=== PATIENT | female | born 2000 | race Caucasian/White ===

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

== ENCOUNTER → 2020-05-29 11:06 | Outpatient (CLI) | payer MEDICAID, SELFPAY ==
[2020-05-29 11:27] LABS: Absolute Lymphocyte Count 1.91 X10^3/uL (0.83-4.51); Absolute Neutrophil Count 1.8 X10^3/uL (2.0-7.7); Basophil# 0.01 X10^3/uL; Basophil% 0.2 % (0-1); Eosinophil# 0.05 X10^3/uL; Eosinophils% 1.2 % (0-5); Hematocrit 38.3 % (37-47); Hemoglobin 12.7 g/dL (12.0-15.0); Lymphocyte # 1.91 X10^3/ul (4.0); Lymphocyte % 46.5 % (19-41); Mean Corp Hgb Conc 33.2 g/dL (32-36); Mean Corpuscular Hgb 29.8 pg (27.0-32.0); Mean Corpuscular Volume 89.9 fL (81-99); Mean Platelet Vol. 9.3 fl (6.2-12.0); Monocyte# 0.36 X10^3/uL; Monocyte% 8.8 % (0-10); NRBC Flagged by Analyzer 0 % (0-5); Neutrophil # 1.77 X10^3/uL (2.7-7.7); Neutrophil % 43.1 % (47-70); Platelet Count 267 K/mm3 (150-450); RBC Distribution Width CV 12.1 % (11.6-14.6); RBC Distribution Width SD 39.8 fl (35.1-43.9); Red Blood Count 4.26 M/mm3 (4.2-5.4); White Blood Count 4.1 K/mm3 (4.4-11.0)
[2020-05-29 11:48] LABS: Thyroid Stim Hormone (TSH) 1.71 uIU/mL (0.358-3.74)
[2020-06-01 16:36] LABS: HPV Reflexed? NOT INDICATED
== END ==
PROVIDERS: PCP Internal Medicine; Referring Provider Obstetrics & Gynecology; Visit Provider Obstetrics & Gynecology
DX: R53.83 Other fatigue (principal); Z12.4 Encounter for screening for malignant neoplasm of cervix
CPT/HCPCS: 36415; 82306; 84443; 85025; 88175; G0145

== ENCOUNTER → 2020-06-08 07:55 | Outpatient (CLI) | payer MEDICAID, SELFPAY ==
--- NOTE | 2020-06-08 08:00 | US_ITS ---
STUDY: ULTRASOUND BREAST - LEFT REASON FOR EXAM: Female, 20 years old. Palpable lump left breast. TECHNIQUE: Axial and longitudinal images of the LEFT breast were performed with a high resolution ultrasound transducer. # OF IMAGES: 28 COMPARISON: None. FINDINGS: LEFT Breast: The upper lateral aspect of the left breast was examined by ultrasound. There is homogeneous fibroglandular tissue. No sonographic abnormality is seen. US/Breast Limited Unilateral IMPRESSION: No sonographic abnormality is seen. ASSESSMENT CATEGORY: BIRADS Category 1: Negative. A letter regarding these results will be sent to the patient by the facility within 30 days. Electronically Signed: Ambrose Samuels MD at 10:40 EST , Service support ,
== END ==
PROVIDERS: PCP Internal Medicine; Referring Provider Obstetrics & Gynecology; Visit Provider Obstetrics & Gynecology
DX: N63.20 Unspecified lump in the left breast, unspecified quadrant (principal)
CPT/HCPCS: 76642

== ENCOUNTER → 2024-07-07 | Outpatient (CLI) | payer MEDICAID, SELFPAY ==
[2024-07-07 17:36] LABS: Absolute Lymphocyte Count 1.97 X10^3/uL (0.83-4.51); Absolute Neutrophil Count 4.4 X10^3/uL (2.0-7.7); Basophil# 0.02 X10^3/uL; Basophil% 0.3 % (0-1); Eosinophil# 0.05 X10^3/uL; Eosinophils% 0.7 % (0-5); Hematocrit 37.7 % (37-47); Hemoglobin 12.6 g/dL (12.0-15.0); Lymphocyte # 1.97 X10^3/ul (0.83-4.51); Lymphocyte % 28.3 % (19-41); Mean Corp Hgb Conc 33.4 g/dL (32-36); Mean Corpuscular Hgb 29.4 pg (27.0-32.0); Mean Corpuscular Volume 87.9 fL (81-99); Mean Platelet Vol. 10.3 fl (6.2-12.0); Monocyte# 0.47 X10^3/uL; Monocyte% 6.7 % (0-10); NRBC Flagged by Analyzer 0 % (0-5); Neutrophil # 4.43 X10^3/uL (2.7-7.7); Neutrophil % 63.6 % (47-70); Platelet Count 268 K/mm3 (150-450); RBC Distribution Width CV 13.2 % (11.6-14.6); RBC Distribution Width SD 42.4 fl (35.1-43.9); Red Blood Count 4.29 M/mm3 (4.2-5.4)
[2024-07-07 18:04] LABS: ALB/GLOB Ratio 1.9 RATIO (0.9-2.4); AST(SGOT) 28 U/L (<=31); Alanine Aminotransfer ALT/SGPT 23 U/L (<=34); Albumin, Serum 4.9 g/dL (3.5-5.0); Alkaline Phosphatase 39 U/L (35-104); Anion Gap 13 (5-15); BUN 10 mg/dL (4-19); BUN/Creat Ratio 14.9 RATIO (10-20); Calcium,Total 9.7 mg/dL (7.6-11.0); Carbon Dioxide 25.2 mmol/L (21.0-32.0); Chloride 102 mmol/L (98-108); Creatinine, Serum 0.69 mg/dL (0.70-1.20); EST Glomerular Filtration Rate 124 (>60); Globulin 2.5 g/dL (2.2-4.2); Glucose 88 mg/dL (70-99); Potassium 3.9 mmol/L (3.3-5.1); Protein, Total 7.4 g/dL (5.9-8.4); Sodium Level 140 mmol/L (133-145); Total Bilirubin 0.25 mg/dL (0.00-1.30)
[2024-07-07 18:12] LABS: Vitamin D,25 Hydroxy 23.5 ng/mL (30-100)
[2024-07-12 14:06] LABS: HPV Reflexed? NOT INDICATED
== END | disposition home or self-care (01) ==
PROVIDERS: PCP Internal Medicine; Referring Provider Nurse Practitioner Family; Visit Provider Nurse Practitioner Family
DX: Z12.4 Encounter for screening for malignant neoplasm of cervix (principal); Z13.29 Encounter for screening for other suspected endocrine disorder; N92.6 Irregular menstruation, unspecified
CPT/HCPCS: 36415; 80053; 82306; 84439; 84443; 85025; 88175; G0145

== ENCOUNTER → 2024-12-10 | Outpatient (CLI) | payer MEDICAID, SELFPAY ==
--- NOTE | 2024-12-10 08:46 | US_ITS ---
PROCEDURE: PELVIC W/ TRANSVAGINAL REASON FOR EXAM: AUB TECHNIQUE: Procedure Code: [id number] Modality: US Procedure: PELVIC W/ TRANSVAGINAL COMPARISON: None FINDINGS: LMP: November 05, 2024. Measurements: Uterus: 8.2 cm x 5.7 cm x 4.2 cm with a volume of 101.62 mL Endometrial Thickness: 8.3 mm Right Ovary: 3.8 cm x 1.4 cm x 1.7 cm with a volume of 3.88 mL. Left Ovary: 3.9 cm x 4.1 cm x 2.1 cm with a volume of 17.12 mL. TRANSABDOMINAL: Uterus: There is a 6.8 cm x 7.1 cm x 5.6 cm fibroid. Endometrium: Unremarkable. Right ovary: Normal size and echotexture. Left ovary: Normal size and echotexture. Other: No large pelvic mass identified. Transvaginal sonography was performed to better visualize the endometrium. TRANSVAGINAL: Uterus: Anteverted. 6.8 cm x 7.1 cm 5.6 cm uterine fibroid. Endometrium: Normal echotexture. Right ovary: Normal size and echotexture. Left ovary: Normal size and echotexture. Other adnexal findings: None. Cul-de-sac: No free intraperitoneal fluid identified. Tenderness: No tenderness US/Pelvic w/ Transvaginal IMPRESSION: 6.8 cm 7.1 cm 5.6 cm fundal fibroid. Reading Location: [id number]
--- OUTSIDE RECORDS SUMMARY | 2024-12-10 08:47 | XMS RPT_ITS | CCD ---
Author Organization [facility] Care Team Providers Care Senior Analytic Consultant Name Role Phone Gregory MCINTOSH, Dr. Oswald Primary Care Provider Gregory MCINTOSH, Dr. Oswald Referring Provider Bebo JAINCRasheeda Attending Provider Bebo JAINCRasheeda Referring Provider Rasheeda Lagunas Attending Unavailable Olesammye, Efewdanilobe Referring Unavailable Olesammye, Efewongbe Primary Care Unavailable Rasheeda Lagunas Attending Unavailable Oleghe, Efewongbe Primary Care Unavailable Rasheeda Lagunas Referring Unavailable Rasheeda Lagunas Referring Unavailable Rasheeda Lagunas Attending Unavailable Oleghe, Efewongbe Primary Care Unavailable Medications Current Medications Medication Drug Class(es) Dates Sig (Normalized) Sig (Original) Multivitamin,Tx-Iron -Minerals (Complete Multivitamin) tablet (1 source) Start: 05-04-2019 Multivitamin,Tx-Iro n-Minerals (Complete Multivitamin) tablet Active 1 {tbl} PO DAILY May 04, 2019 1:00am Completed/Discontinued Medications Medication Drug Class(es) Dates Sig (Normalized) Sig (Original) calcium carbonate 1250 mg oral tablet (1 source) Start: 12-15-2018 End: 02-16-2019 take 1 tablet by mouth once daily Calcium Carbonate 500 mg calcium (1,250 mg) tablet Discontinued 500 mg PO DAILY December 15, 2018 12:00am February 16, 2019 7:17pm escitalopram 10 mg oral tablet (1 source) Serotonin Reuptake Inhibitor Start: 05-29-2020 End: 08-30-2021 take 1 tablet by mouth once daily Escitalopram Oxalate (Lexapro) 10 mg tablet Discontinued 10 mg PO DAILY May 29, 2020 1:00am August 30, 2021 2:41pm naproxen 500 mg oral tablet (1 source) Nonsteroidal Anti-inflammatory Drug Start: 05-29-2020 End: 08-30-2021 Naproxen 500 mg tablet Discontinued 500 mg PO 2 to 3 times per day as needed for pain 60 May 29, 2020 1:00am August 30, 2021 2:41pm administer with food or milk Problems Active Problems Problem Classification Problem Date Documented Date Episodic/Chronic Anxiety disorders (1 source) Anxiety; Translations: [Anxiety disorder, unspecified] 08-30-2021 Chronic Comment on above: lexapro Malaise and fatigue (1 source) Fatigue; Translations: [Other fatigue] 08-30-2021 Episodic Comment on above: cbc tsh vit d discus sed lifestyle interventions Menstrual disorders (4 sources) Irregular periods; Translations: [Irregular menstruation, unspecified] Onset: 07-07-2024 07-07-2024 Chronic Comment on above: ocp fu in 3-4 months Nonmalignant breast conditions (1 source) Breast lump; Translations: [Unspecified lump in the left breast, overlapping quadrants] 08-30-2021 Episodic Comment on above: us ordered Other female genital disorders (1 source) Abnormal uterine and vaginal bleeding, unspecified; Translations: [Abnormal uterine and vaginal bleeding, unspecified] Onset: 12-02-2024 Chronic Past or Other Problems Problem Classification Problem Date Documented Da te Episodic/Chronic Other screening for suspected conditions (not mental disorders or infectious disease) (1 source) Encounter for screening for malignant neoplasm of cervix; Translations: [Encounter for screening for malignant neoplasm of cervix] Onset: 07-12-2024 Episodic Results Test Name Value Interpretation Reference Range Facility PAP I-G w/rfx hrHPV-Aptimaon 07-12-2024 ADEQ Comment Normal . [facility] Comment on above: Order Comment: Speci men Comment: [id number] Specimen Comment: Source.............Cervix;Endocervix Specimen Comment: No. of containers..01 ThinPrep Vial Result Comment: Sati sfactory for evaluation. No endocervical component is identified. Performed By: #### L 7400.0353 #### [facility] [address] [place], [place], [address] COMM . Normal . [facility] Comment on above: Order Comment: Speci men Comment: [id number] Specimen Comment: Source.............Cervix;Endocervix Specimen Comment: No. of containers..01 ThinPrep Vial Performed By: #### L 7400.0353 #### [facility] [address] [place], [address] COMMENT Comment Normal . [facility] Comment on above: Order Comment: Speci men Comment: [id number] Specimen Comment: Source.............Cervix;Endocervix Specimen Comment: No. of containers..01 ThinPrep Vial Result Comment: This liquid based ThinPrep(R) pap test was screened with the use of an image guided system. Performed By: #### L 7400.0353 #### [facility] [address] [place], [place], [id number] DIAG Comment Normal . [facility] Comment on above: Order Comment: Speci men Comment: [id number] Specimen Comment: Source.............Cervix;Endocervix Specimen Comment: No. of containers..01 ThinPrep Vial Result Comment: NEGA TIVE FOR INTRAEPITHELIAL LESION OR MALIGNANCY. Performed By: #### L 7400.0353 #### [facility] [address] [place], [place], [id number] HPV RFLX Comment Normal . [facility] Comment on above: Order Comment: Speci men Comment: [id number] Specimen Comment: Source.............Cervix;Endocervix Specimen Comment: No. of containers..01 ThinPrep Vial Result Comment: The HPV DNA reflex criteria were not met with this specimen result therefore, no HPV testing was performed. Performed at: [facility] [id number] Mri Tech: Sage Booth MD, Phone: [phone] Performed at: [address] [id number] Mri Tech: Brooklynn Bautista MD, Phone: [phone] Performed By: #### L 7400.0353 #### [facility] [address] [place], [place], [id number] PAPSMR Comment Normal . [facility] Comment on above: Order Comment: Speci men Comment: [id number] Specimen Comment: Source.............Cervix;Endocervix Specimen Comment: No. of containers..01 ThinPrep Vial Result Comment: The Pap smear is a screening test designed to aid in the detection of premalignant and malignant conditions of the uterine cervix. It is not a diagnostic procedure and should not be used as the sole means of detecting cervical cancer. Both false-positive and false-negative reports do occur. Performed By: #### L 7400.0353 #### [facility] [address] [place], [place], [address] PERFORM Comment Normal . [facility] Comment on above: Order Comment: Speci men Comment: [id number] Specimen Comment: Source.............Cervix;Endocervix Specimen Comment: No. of containers..01 ThinPrep Vial Result Comment: Monica Segal, Rate Clerk Passenger (ASCP) Performed By: #### L 7400.0353 #### [facility] [address] [place], [place], [id number] Absolute neutrophil countOrd ered By: Rasheeda Lagunas on 07-07-2024 Neutrophils (Bld) [#/Vol] 4.4 10*3/uL 2.0-7.7 [facility] Anion gap in Serum or Plasma Ordered By: Rasheeda Lagunas on 07-07-2024 Anion gap [Moles/Vol] 13 mmol/L 5-15 [facility] BUN/creatinine ratioOrdered By: Rasheeda Lagunas on 07-07-2024 Urea nitrogen/Creatinine [Mass ratio] 14.9 mg/mg 10-20 [facility] Basophil percentageOrdered B y: Rasheeda Lagunas on 07-07-2024 Basophils/100 WBC (Bld) 0.3 % 0-1 [facility] Bilirubin, totalOrdered By: Rasheeda Lagunas on 07-07-2024 Bilirubin [Mass/Vol] 0.25 mg/dL 0.00-1.30 [facility] CBC W/Diff, Automatedon Absolute Lymph 1.97 X10 3/uL Normal 0.83-4.51 [facility] Comment on above: Performed By: #### L 500.4050, L100.0100, L506.0400, L501.9520, L506.1001 #### [facility] [address] [place], [address] Absolute Neut 4.4 X10 3/uL Normal 2.0-7.7 [facility] Comment on above: Performed By: #### L 500.4050, L100.0100, L506.0400, L501.9520, L506.1001 #### [facility] [address] [place], [address] Basophils/100 WBC (Bld) 0.3 % Normal 0-1 [facility] Comment on above: Performed By: #### L 500.4050, L100.0100, L506.0400, L501.9520, L506.1001 #### [facility] [address] [place], [address] Eosinophils/100 WBC (Bld) 0.7 % Normal 0-5 [facility] Comment on above: Performed By: #### L 500.4050, L100.0100, L506.0400, L501.9520, L506.1001 #### [facility] [address] [place], [address] Erythrocyte distribution width (RBC) [Ratio] 13.2 % Normal 11.6-14.6 [facility] Comment on above: Performed By: #### L 500.4050, L100.0100, L506.0400, L501.9520, L506.1001 #### [facility] [address] [place], [address] Hematocrit (Bld) [Volume fraction] 37.7 % Normal 37-47 [facility] Comment on above: Performed By: #### L 500.4050, L100.0100, L506.0400, L501.9520, L506.1001 #### [facility] [address] [place], [address] Hemoglobin (Bld) [Mass/Vol] 12.6 g/dL Normal 12.0-15.0 [facility] Comment on above: Performed By: #### L 500.4050, L100.0100, L506.0400, L501.9520, L506.1001 #### [facility] [address] [place], [address] IG% 0.400 Normal 0.0-0.9 [facility] Comment on above: Result Comment: IG% - Immature Granulocytes (promyelocytes, myelocytes and metamyelocytes) > 1% indicates that a LEFT SHIFT is Present. Performed By: #### L 500.4050, L100.0100, L506.0400, L501.9520, L506.1001 #### [facility] [address] [place], [address] Lymphocytes/100 WBC (Bld) 28.3 % Normal 19-41 [facility] Comment on above: Performed By: #### L 500.4050, L100.0100, L506.0400, L501.9520, L506.1001 #### [facility] [address] [place], [address] MCH (RBC) [Entitic mass] 29.4 pg Normal 27.0-32.0 [facility] Comment on above: Performed By: #### L 500.4050, L100.0100, L506.0400, L501.9520, L506.1001 #### [facility] [address] [place], [address] MCHC (RBC) [Mass/Vol] 33.4 g/dL Normal 32-36 [facility] Comment on above: Performed By: #### L 500.4050, L100.0100, L506.0400, L501.9520, L506.1001 #### [facility] [address] [place], [address] MCV (RBC) [Entitic vol] 87.9 fL Normal 81-99 [facility] Comment on above: Performed By: #### L 500.4050, L100.0100, L506.0400, L501.9520, L506.1001 #### [facility] [address] [place], [address] Monocytes/100 WBC (Bld) 6.7 % Normal 0-10 [facility] Comment on above: Performed By: #### L 500.4050, L100.0100, L506.0400, L501.9520, L506.1001 #### [facility] [address] [place], [address] Neutrophils/100 WBC (Bld) 63.6 % Normal 47-70 [facility] Comment on above: Performed By: #### L 500.4050, L100.0100, L506.0400, L501.9520, L506.1001 #### [facility] [address] [place], [address] Nucleated RBC (Bld) [#/Vol] 0 10*3/uL Normal 0-5 [facility] Comment on above: Performed By: #### L 500.4050, L100.0100, L506.0400, L501.9520, L506.1001 #### [facility] [address] [place], [address] Platelet mean volume (Bld) [Entitic vol] 10.3 fL Normal 6.2-12.0 [facility] Comment on above: Performed By: #### L 500.4050, L100.0100, L506.0400, L501.9520, L506.1001 #### [facility] [address] [place], [address] Platelets (Bld) [#/Vol] 268 10*3/uL Normal 150-450 [facility] Comment on above: Performed By: #### L 500.4050, L100.0100, L506.0400, L501.9520, L506.1001 #### [facility] [address] [place], [address] RBC (Bld) [#/Vol] 4.29 10*6/uL Normal 4.2-5.[address] [facility] Comment on above: Performed By: #### L 500.4050, L100.0100, L506.0400, L501.9520, L506.1001 #### [facility] [address] [place], [address] RDW SD 42.4 fl Normal 35.1-43.9 [facility] Comment on above: Performed By: #### L 500.4050, L100.0100, L506.0400, L501.9520, L506.1001 #### [facility] [address] [place], [address] WBC (Bld) [#/Vol] 7.0 10*3/uL Normal 4.4-11.0 [facility] Comment on above: Performed By: #### L 500.4050, L100.0100, L506.0400, L501.9520, L506.1001 #### [facility] [address] [place], [address] Carbon dioxide, total [Moles /volume] in Central venous bloodOrdered By: Rasheeda Lagunas on 07-07-2024 CO2 [Moles/Vol] 25.2 mmol/L 21.0-32.0 [facility] Chloride assayOrdered By: Kelly Lagunas on 07-07-2024 Chloride [Moles/Vol] 102 mmol/L 98-108 [facility] Comprehensive Metabolic Prof ilon 07-07-2024 Albumin [Mass/Vol] 4.9 g/dL Normal 3.5-5.0 [facility] Comment on above: Performed By: #### L 500.4050, L100.0100, L506.0400, L501.9520, L506.1001 #### [facility] [address] [place], [address] Albumin/Globulin [Mass ratio] 1.9 {ratio} Normal 0.9-2.4 [facility] Comment on above: Performed By: #### L 500.4050, L100.0100, L506.0400, L501.9520, L506.1001 #### [facility] [address] [place], [address] ALK PHOS 39 U/L Normal 35-104 [facility] Comment on above: Performed By: #### L 500.4050, L100.0100, L506.0400, L501.9520, L506.1001 #### [facility] [address] [place], [address] ALT [Catalytic activity/Vol] 23 U/L Normal <=34 [facility] Comment on above: Performed By: #### L 500.4050, L100.0100, L506.0400, L501.9520, L506.1001 #### [facility] [address] [place], [address] AST [Catalytic activity/Vol] 28 U/L Normal <=31 [facility] Comment on above: Performed By: #### L 500.4050, L100.0100, L506.0400, L501.9520, L506.1001 #### [facility] [address] [place], [address] Bilirubin [Mass/Vol] 0.25 mg/dL Normal 0.00-1.30 [facility] Comment on above: Performed By: #### L 500.4050, L100.0100, L506.0400, L501.9520, L506.1001 #### [facility] [address] [place], [address] BUN/CRE 14.9 RATIO Normal 10-20 [facility] Comment on above: Performed By: #### L 500.4050, L100.0100, L506.0400, L501.9520, L506.1001 #### [facility] [address] [place], [address] Calcium [Mass/Vol] 9.7 mg/dL Normal 7.6-11.0 [facility] Comment on above: Performed By: #### L 500.4050, L100.0100, L506.0400, L501.9520, L506.1001 #### [facility] [address] [place], [address] Chloride [Moles/Vol] 102 mmol/L Normal 98-108 [facility] Comment on above: Performed By: #### L 500.4050, L100.0100, L506.0400, L501.9520, L506.1001 #### [facility] [address] [place], [address] CO2 [Moles/Vol] 25.2 mmol/L Normal 21.0-32.0 [facility] Comment on above: Performed By: #### L 500.4050, L100.0100, L506.0400, L501.9520, L506.1001 #### [facility] [address] [place], [address] Creatinine [Mass/Vol] 0.69 mg/dL Low 0.70-1.20 [facility] Comment on above: Performed By: #### L 500.4050, L100.0100, L506.0400, L501.9520, L506.1001 #### [facility] [address] [place], [address] GAP 13 Normal 5-15 [facility] Comment on above: Performed By: #### L 500.4050, L100.0100, L506.0400, L501.9520, L506.1001 #### [facility] [address] [place], [address] GFR/1.73 sq M.predicted among non-blacks MDRD (S/P/Bld) [Vol rate/Area] 124 mL/min/{1.73_m2} Normal >60 [facility] Comment on above: Result Comment: mL/m in/1.73m2 CKD-EPI Creatinine Equation (2020) Performed By: #### L 500.4050, L100.0100, L506.0400, L501.9520, L506.1001 #### [facility] [address] [place], [address] Globulin (S) [Mass/Vol] 2.5 g/dL Normal 2.2-4.2 [facility] Comment on above: Performed By: #### L 500.4050, L100.0100, L506.0400, L501.9520, L506.1001 #### [facility] [address] [place], [address] Glucose [Mass/Vol] 88 mg/dL Normal 70-99 [facility] Comment on above: Performed By: #### L 500.4050, L100.0100, L506.0400, L501.9520, L506.1001 #### [facility] [address] [place], [address] Potassium [Moles/Vol] 3.9 mmol/L Normal 3.3-5.1 [facility] Comment on above: Performed By: #### L 500.4050, L100.0100, L506.0400, L501.9520, L506.1001 #### [facility] [address] [place], [address] Sodium [Moles/Vol] 140 mmol/L Normal 133-145 [facility] Comment on above: Performed By: #### L 500.4050, L100.0100, L506.0400, L501.9520, L506.1001 #### [facility] [address] [place], [address] T PROT 7.4 g/dL Normal 5.9-8.4 [facility] Comment on above: Performed By: #### L 500.4050, L100.0100, L506.0400, L501.9520, L506.1001 #### [facility] [address] [place], [address] Urea nitrogen [Mass/Vol] 10 mg/dL Normal 4-19 [facility] Comment on above: Performed By: #### L 500.4050, L100.0100, L506.0400, L501.9520, L506.1001 #### [facility] [address] [place], [address] Eosinophil percentageOrdered By: Rasheeda Lagunas on 07-07-2024 Eosinophils/100 WBC (Bld) 0.7 % 0-5 [facility] Erythrocyte distribution wid th (RBC) [Ratio]Ordered By: Rasheeda Lagunas on 07-07-2024 Erythrocyte distribution width (RBC) [Entitic vol] 42.4 fL 35.1-43.9 [facility] Erythrocyte distribution wid th ratioOrdered By: Rasheeda Lagunas on 07-07-2024 Erythrocyte distribution width (RBC) [Ratio] 13.2 % 11.6-14.6 [facility] GFR/1.73 sq M.predicted emily g non-blacks MDRD (S/P/Bld) [Vol rate/Area]Ordered By: Rasheeda Lagunas on 07-07-2024 Estimated GFR (MDRD) Non-Af Amer 124 >60 [facility] Comment on above: mL/min/1.73m2 CKD-EP I Creatinine Equation (2020) Hematocrit Auto (Bld) [Volum e fraction]Ordered By: Rasheeda Lagunas on 07-07-2024 Hematocrit (Bld) [Volume fraction] 37.7 % 37-47 [facility] Hemoglobin measurementOrdere d By: Raseheda Lagunas on 07-07-2024 Hemoglobin (Bld) [Mass/Vol] 12.6 g/dL 12.0-15.0 [facility] Immature granulocytes/100 WB C Auto (Bld)Ordered By: Rasheeda Lagunas on 07-07-2024 Immature granulocytes/100 WBC (Bld) 0.400 % 0.0-0.9 [facility] Comment on above: IG% - Immature Granu locytes (promyelocytes, myelocytes and metamyelocytes) > 1% indicates that a LEFT SHIFT is Present. Laboratory - Chemistry and C hemistry - challengeOrdered By: Rasheeda Lagunas on 07-07-2024 AST [Catalytic activity/Vol] 28 U/L <32 [facility] Lymphocytes Auto (Unsp spec) [#/Vol]Ordered By: Rasheeda Lagunas on 07-07-2024 Lymphocytes (Bld) [#/Vol] 1.97 10*3/uL 0.83-4.51 [facility] Lymphocytes/100 WBC Auto (Un sp spec)Ordered By: Rasheeda Lagunas on 07-07-2024 Lymphocytes/100 WBC (Bld) 28.3 % 19-41 [facility] MCV (mean corpuscular volume ) determinationOrdered By: Rasheeda Lagunas on 07-07-2024 MCV (RBC) [Entitic vol] 87.9 fL 81-99 [facility] Mean corpuscular hemoglobin (MCH) determinationOrdered By: Rasheeda Lagunas on 07-07-2024 MCH (RBC) [Entitic mass] 29.4 pg 27.0-32.0 [facility] Mean corpuscular hemoglobin concentration (MCHC) determinationOrdered By: Rasheeda Lagunas on 07-07-2024 MCHC (RBC) [Mass/Vol] 33.4 g/dL 32-36 [facility] Mean platelet volume determi nationOrdered By: Rasheeda Lagunas on 07-07-2024 Platelet mean volume (Bld) [Entitic vol] 10.3 fL 6.2-12.0 [facility] Monocyte percentageOrdered B y: Rasheeda Lagunas on 07-07-2024 Monocytes/100 WBC (Bld) 6.7 % 0-10 [facility] Neutrophil percentageOrdered By: Rasheeda Lagunas on 07-07-2024 Neutrophils/100 WBC (Bld) 63.6 % 47-70 [facility] Nucleated red blood cell per centageOrdered By: Rasheeda Lagunas on 07-07-2024 Nucleated RBC/100 WBC (Bld) [Ratio] 0 % 0-5 [facility] Instructional Manager Office Visit Reporton 07-07-2024 Instructional Manager Office Visit Report [facility] [address], [address] [place] [address] OFFICE VISIT Date of Service: 07/07/24 MR#: [id number] Acct: [id number] Name: MELISSA REINOSO Rep #: [id number] : 2000 Provider: YAMILET Tate Age/Sex: 24/F Location: [facility] Status: Signed Intake Vital Signs 08/30/21 14:40 07/07/24 13:37 Height 5 ft 3 in 5 ft 3 in Weight: 138 lb BMI 24.4 BP 121/79 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 Is patient in pain?: No Allergies No Known Allergies Allergy (Verified 07/07/24 13:35) Medications ???Medication ???Instructions ???Recorded ???Confirmed ???Type multivitamin,tx-iron-m inerals 1 tab PO DAILY 05/04/19 07/07/24 H istory (Complete Multivitamin tablet) Is last menstrual period known: Yes Last Menstrual Period: 06/17/24 Post menopausal: No Patient : No : No Control Method: none PFSH Medical History (Updated 07/07/24 @ 14:05 by YAMILET Gold) Heart murmur Surgical History S/P tooth extraction Family History Grandfather Colon cancer Grandmother Cancer Father Diabetes Social History (Updated 07/07/24 @ 13:51 by Rasheeda Lagunas NP-Renee) household members: spouse housing: house Smoking Status: Never smoker alcohol intake: never substance use type: does not use frequency: does not exercise seatbelt use: always additional social history: Works at [employer] History 0 Elective abortions Hx Para Spontaneous abortions Hx # Term Pregnancies Ectopic pregnancies Hx # Pregnancies Multiple births # of living children HPI Encounter for routine gynecological examination Details: MELISSA REINOSO is a 24 year old who presents for annual exam. She reports she has had painful periods; she reports she does have heavy bleeding during her menses; occasionally has bleeding in between her menses--reports this comes around ovulation. She reports she is sexually active. Wearing condoms-1 partner () Last PAP: 2020; normal. History of abnormal PAP: no. Last mammogram: age 39 History of abnormal mammogram: n/a Colon cancer screening: age 44 Other preventative health care screenings: Dr. Jenkins; PCP. Female Reproductive History Last Menstrual Period: 06/17/24 Cycle Length: 21-35 Bleeding Duration: 3 ROS Const Constitutional: Denies chills, fatigue, fever(s), headache(s) or weight loss Eyes Eyes: Denies change in vision ENT ENT: Denies dizziness Resp Resp: Denies cough GI GI: Denies abdominal pain, constipation or nausea : Denies difficulty voiding, dysuria, hematuria, nipple discharge, pelvic pain, prolapse symptoms, urinary incontinence, vaginal discharge, vaginal dryness, vaginal odor or vaginal pruritus Skin Skin/Breast: Denies alopecia, rash, breast mass, breast pain, breast skin changes or nipple discharge Neuro Neuro: Denies dizziness Psych Psych: Denies anxiety or depression Endo Endo: Denies cold intolerance, excessive sweating or heat intolerance Exam Const General: cooperative, healthy appearing, comfortable, no acute distress, well groomed and well hydrated Nutritional Appearance: well nourished Orientation: alert, awake and oriented x3 HENMT Head: normal to inspection and normocephalic Ears: hearing grossly normal bilaterally and external ears normal Nose: external nose normal Face and sinus: normal facial exam Eyes General: appearance normal, both eyes and all related structures Neck Neck: normal visual inspection, full ROM and no lymphadenopathy Thyroid: thyroid normal Chest Chest palpation inspection: normal inspection of the chest Breast inspection: normal inspection of the breasts and normal inspection of the axillae Breast palpation: normal palpation of the breasts, normal palpation of the axillae and no axillary lymphadenopathy Resp Effort Inspection: normal respiratory effort, able to speak in complete sentences and symmetric chest movement GI Inspection: normal to inspection Palpation: soft and no hepatosplenomegaly General: bladder normal to palpation External Female Exam: normal external appearance and normal appearance of the urethra Urethra: normal appearance of the urethra Speculum Exam - Vagina: normal appearance of the vagina, normal vaginal discharge, no lesions and nontender Speculum Exam - Cervix: normal appearance of the cervix, no lesions and no masses Bimanual Exam- Vagina Uterus: normal bimanual exam, uterine size normal, bladder normal to palpation, normal palpation and non-tender Bimanual Exam- Adnexa, other: normal adnexae, no masses, normal and non-tender Pelvic Supp (more content not included)... Normal [facility] Platelet countOrdered By: Kelly Lagunas on 07-07-2024 Platelets (Bld) [#/Vol] 268 10*3/uL 150-450 [facility] Potassium (Unsp spec) [Mass/ Vol]Ordered By: Rasheeda Lagunas on 07-07-2024 Potassium [Moles/Vol] 3.9 mmol/L 3.3-5.1 [facility] RBC Auto (Bld) [#/Vol]Ordere d By: Rasheeda Lagunas on 07-07-2024 RBC (Bld) [#/Vol] 4.29 10*6/uL 4.2-5.[address] [facility] Serum creatinine measurement (mass/volume)Ordered By: Rasheeda Lagunas on 07-07-2024 Creatinine [Mass/Vol] 0.69 mg/dL Low 0.70-1.20 [facility] Serum globulin measurementOr dered By: Rasheeda Lagunas on 07-07-2024 Globulin (S) [Mass/Vol] 2.5 g/dL 2.2-4.2 [facility] Serum glucose measurement (m ass/volume)Ordered By: Rasheeda Lagunas on 07-07-2024 Glucose [Mass/Vol] 88 mg/dL 70-99 [facility] Serum or plasma alanine carr otransferase (ALT) measurementOrdered By: Rasheeda Lagunas on 07-07-2024 ALT [Catalytic activity/Vol] 23 U/L <35 [facility] Serum or plasma albumin germania urement (mass/volume)Ordered By: Rasheeda Lagunas on 07-07-2024 Albumin [Mass/Vol] 4.9 g/dL 3.5-5.0 [facility] Serum or plasma albumin/glob ulin mass ratioOrdered By: Rasheeda Lagunas on 07-07-2024 Albumin/Globulin [Mass ratio] 1.9 {ratio} 0.9-2.4 [facility] Serum or plasma alkaline jonathan sphatase measurementOrdered By: Rasheeda Lagunas on 07-07-2024 ALP [Catalytic activity/Vol] 39 U/L 35-104 [facility] Serum or plasma calcium germania urement (mass/volume)Ordered By: Rasheeda Lagunas on 07-07-2024 Calcium [Mass/Vol] 9.7 mg/dL 7.6-11.0 [facility] Serum or plasma urea nitroge n measurement (mass/volume)Ordered By: Rasheeda Lagunas on 07-07-2024 Urea nitrogen [Mass/Vol] 10 mg/dL 4-19 [facility] Sodium levelOrdered By: Pita Lagunas on 07-07-2024 Sodium [Moles/Vol] 140 mmol/L 133-145 [facility] T4 Free Directon 07-07-2024 T4 FREE DIRECT 1.20 ng/dL Normal 0.76-1.46 [facility] Comment on above: Performed By: #### L 500.4050, L100.0100, L506.0400, L501.9520, L506.1001 #### [facility] [address] [place], [address] T4 freeOrdered By: Rasheeda ochoa on 07-07-2024 Free T4 [Mass/Vol] 1.20 ng/dL 0.76-1.46 [facility] TSH DL <= 0.005 mIU/L QnOrde red By: Rasheeda Lagunas on 07-07-2024 Thyroid Stimulating Hormone (TSH) 1.430 uIU/mL 0.300-4.200 [facility] Thyroid Stim Hormone (TSH)on 07-07-2024 TSH 1.430 uIU/mL Normal 0.300-4.200 [facility] Comment on above: Performed By: #### L 500.4050, L100.0100, L506.0400, L501.9520, L506.1001 #### [facility] [address] [place], [address] Total proteinOrdered By: Duy Lagunas on 07-07-2024 Protein [Mass/Vol] 7.4 g/dL 5.9-8.4 [facility] Vitamin D, 25-hydroxyOrdered By: Rasheeda Lagunas on 07-07-2024 Vitamin D 25-Hydroxy 23.5 ng/mL Low 30-100 [facility] Comment on above: Vitamin D StatusDefi ciency: <20 ng/mL (50nmol/L)Insufficiency: 20-30 ng/mL (50-75 nmol/L)Sufficiency: 30-100 ng/mL (75-250 nmol/L)Toxicity: >100 ng/mL (>250 nmol/L) Vitamin D,25 Hydroxyon 07-07 Vitamin D 25-OH 23.5 ng/mL Low 30-100 [facility] Comment on above: Result Comment: Katia min D Status Deficiency: <20 ng/mL (50nmol/L) Insufficiency: 20-30 ng/mL (50-75 nmol/L) Sufficiency: 30-100 ng/mL (75-250 nmol/L) Toxicity: >100 ng/mL (>250 nmol/L) Performed By: #### L 500.4050, L100.0100, L506.0400, L501.9520, L506.1001 #### [facility] [address] [place], [address] White blood cell (WBC) count Ordered By: Rasheeda Lagunas on 07-07-2024 WBC (Bld) [#/Vol] 7.0 10*3/uL 4.4-11.0 [facility] Vital Signs Date Time Vital Sign Value Performing Clinician Faci lia 07-07-2024 13:37-0400 Body height 160.[address] Margret Jenkins MD Work Phone: [facility] 07-07-2024 13:37-0400 Body mass index (BMI) [Ratio] 24.4 kg/m2 Dr. Margret Jenkins MD Work Phone: [facility] 07-07-2024 13:37-0400 Body weight 62.[address] Margret Jenkins MD Work Phone: [facility] 07-07-2024 13:37-0400 Diastolic blood pressure 79 mm[Hg] Dr. Margret Jenkins MD Work Phone: [facility] 07-07-2024 13:37-0400 Systolic blood pressure 121 mm[Hg] Dr. Margret Jenkins MD Work Phone: [facility] Encounters Encounter Date Encounter Type Care Provider Facility Start: 12-10-2024 ambulatory Rasheeda Lagunas Facility :[facility] Start: 07-07-2024 Encounter for gynecological examination (general) (routine) without abnormal findings Rasheeda aLgunas [facility] Start: 07-07-2024 End: 07-07-2024 Patient encounter procedure Rasheeda WOODARD [facility] Work Phone: Start: 07-07-2024 End: 07-07-2024 Patient encounter status Rasheeda WOODARD [facility] Start: 07-07-2024 End: 07-07-[address] Margret Jenkins MD Work Phone: [facility] Work Phone: Start: 07-07-2024 End: 07-07-2024 ambulatory Rasheeda Lagunas Facility:[facility] Plan of Treatment Date Care Activity Detail Author Start: 07-07-2024 Liquid based cervica l cytology screening [facility] Path report.final Dx Spec [facility] Payers Date Payer Category Payer Self-pay 2024 Unknown [id number] Unknown [id number] Unknown [id number] Unknown [id number] Social History Date Type Detail Facility [facility]: [facility]07-[facility] Start: 07-12-2024 Sex Female (finding) [facility] Start: 2000 Sex Assigned At Female [facility] Evaluation note 07-07-2024 Note Date & Type Note Facility 07-07-2024 Evaluation note Diagnosis Onset Date Resolution Irregular menses acute July 1:33pm Encounter for routine gynecological examination noneactive July 07, 2024 1:33pm [facility] Work Phone: Reason for referral (narrative) Note Date & Type Note Facility Reason for referral (narrative) No reason for referral information available [facility] Work Phone: Chief Complaint and Reason for Visit Chief Complaint 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 Date 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) July 07, 2024 1:33 pm Reason for Visit Admit Date Irregular menses July 07, 2024 1:33 pm Encounter for routine gynecological exam ination July 07, 2024 1:33pm Family History No Family History Records Found Relationship Condition Age at Onset Recorded Date/T anthony grandfather Malignant neoplasm of colon Unknown grandmother Malignant neoplasm Unknown father Diabetes mellitus Unknown Summary Purpose Advance Directives No Advanced Directives Records Found Additional Source Comments Care Teams (unrecognized sec tion and content) Team Status: Active Member Role Status Dates No Primary Care Physician Family Provider Active Dr. Margret Jenkins MD Primary Care Provider Active Team Status: Inactive Member Role Status Dates Dr. Margret Jenkins MD Primary Care Provider Active Start: July 07, 2024 End: July 07, 2024 Dr. Margret Jenkins MD Referring Provider Active Start: July 07, 2024 End: July 07, 2024 YAMILET Gold Attending Provider Active Start: July 07, 2024 End: July 07, 2024 Team Status: Inactive Member Role Status Dates Dr. Margret Jenkins MD Primary Care Provider Active Start: July 07, 2024 End: July 07, 2024 YAMILET Godl Attending Provider Active Start: July 07, 2024 End: July 07, 2024 YAMILET Gold Referring Provider Active Start: July 07, 2024 End: July 07, 2024 Goals (unrecognized section and content) Goals may be documented in a n alternate section INFORMATION SOURCE (unrecogn ized section and content) DATE CREATED AUTHOR 12/03/2024 [facility] FOR RECORDS PERTAINING TO PATIENTS WHO ARE OR HAVE BEEN ENROLLED IN A CHEMICAL DEPENDENCY/SUBSTANCEABUSE PROGRAM, SOME INFORMATION MAY BE OMITTED. This clinical summary was aggregated from multiple sources. Caution should be exercised in using it in the provision of clinical care. This summary normalizes information from multiple sources, and as a consequence, information in this document may materially change the coding, format and clinical context of patient data. In addition, data may be omitted in some cases. CLINICAL DECISIONS SHOULD BE BASED ON THE PRIMARY CLINICAL RECORDS. [employer] provides no warranty or guarantee of the accuracy or completeness of information in this document.
== END | disposition home or self-care (01) ==
LOC: US 08:44
PROVIDERS: PCP Internal Medicine; Referring Provider Nurse Practitioner Family; Visit Provider Nurse Practitioner Family
DX: N93.9 Abnormal uterine and vaginal bleeding, unspecified (principal)
CPT/HCPCS: 76830; 76856

== ENCOUNTER 2025-01-24 09:24 | Inpatient (IN) | payer SELFPAY ==
--- NOTE | 2025-01-19 09:03 | NURSING ---
SPOKE WITH JULIO FROM DR LOAIZA OFFICE REGARDING PT SUPPLEMENTS, NURSE TO CHECK WITH AND CALL PT IF NEEDS TO STOP BEFORE SURGERY
[2025-01-19 16:27] LABS: Hematocrit 37.1 % (37-47); Hemoglobin 12.4 g/dL (12.0-15.0); Immature Granulocytes Count 0.010 X10^3/uL (0.0-0.0); Mean Corp Hgb Conc 33.4 g/dL (32-36); Mean Corpuscular Volume 88.5 fL (81-99); Mean Platelet Vol. 10.2 fl (6.2-12.0); NRBC Flagged by Analyzer 0 % (0-5); Platelet Count 287 K/mm3 (150-450); RBC Distribution Width CV 12.5 % (11.6-14.6); RBC Distribution Width SD 40.7 fl (35.1-43.9); Red Blood Count 4.19 M/mm3 (4.2-5.4); White Blood Count 6.1 K/mm3 (4.4-11.0)
--- NOTE | 2025-01-23 17:35 | HP.PCM_ITS ---
History and Physical Intake Vital Signs 12/22/2513:35 01/06/2508:48 Height 5 ft 3 in 5 ft 3 in Weight: 134 lb 1 oz 130 lb 5 oz BMI 23.7 23.1 BP 116/69 108/72 Intake Visit Reasons: abdominal myomectomy [place] Consultant Required: No Is patient in pain?: No Allergies No Known Allergies Allergy (Verified 01/05/25 08:50) Medications ?Medication ?Instructions ?Recorded ?Confirmed ?Type multivitamin,[id number] 1 tab PO DAILY 05/04/19 01/05/25 History (Complete Multivitamin tablet) Is last menstrual period known: Yes Last Menstrual Period: 12/15/24 Post menopausal: No Patient : No : No PFSH Medical History Heart murmur Surgical History S/P tooth extraction Family History Grandfather Colon cancer Grandmother Cancer Father Diabetes Social History (Updated 01/05/25 @ 08:51 by Elizabeth Mejia) household members: spouse housing: house current occupational status: employed current occupation: [employer] Smoking Status: Never smoker alcohol intake: never substance use type: does not use frequency: does not exercise seatbelt use: always additional social history: Ismael MONICA abdominal myomectomy Details: The patient is a 24-year-old female presenting with preoperative planning for the removal of a uterine fibroid. The uterine fibroid is approximately 7 cm in size and is located at the top of the uterus, not in a high-risk area but large enough to warrant removal before . The fibroid has been associated with symptoms such as cramping, which may be attributed to its presence. The patient has a history of anemia, which is being monitored, especially in the context of heavy menstrual bleeding. Blood counts were checked in July, and the patient is advised to take iron supplements to manage anemia. Attestation: Documentation on this patient encounter was supported using ambient scribe technology/ voice AI technology. The patient consented to recording for the purpose of documenting the encounter. Provider reviewed content of the generated note prior to signature. Female Reproductive History Last Menstrual Period: 12/15/24 Menopausal Symptoms: No night sweats History 0 Elective abortions Hx Para Spontaneous abortions Hx # Term Pregnancies Ectopic pregnancies Hx # Pregnancies Multiple births # of living children ROS Const Constitutional: Denies fatigue, night sweats, weight gain or weight loss ENT ENT: Reports system reviewed and no additional complaints, except as documented Cardio Card: Denies chest pain Resp Resp: Denies cough or dyspnea GI GI: Reports as per HPI and abdominal pain; Denies constipation, nausea or vomiting : Denies nipple discharge, urinary frequency, urinary incontinence, urinary hesitancy, urinary urgency, vaginal discharge, vaginal dryness, vaginal odor or vaginal pruritus Musc Musc: Denies arthralgias, back pain or muscle weakness Skin Skin/Breast: Denies alopecia, change in hair, dry skin, breast mass, breast pain, breast skin changes or nipple discharge Neuro Neuro: Reports system reviewed and no additional complaints, except as documented Psych Psych: Reports system reviewed and no additional complaints, except as documented Endo Endo: Denies cold intolerance, excessive sweating, heat intolerance or polydipsia Kasi/Lymph Hematologic/Lymphatic: Denies easy bleeding, Denies easy bruising and Denies lymphadenopathy Exam Const General: cooperative, healthy appearing, comfortable and no acute distress Orientation: alert HENMT Head: normal to inspection and normocephalic Ears: hearing grossly normal bilaterally and external ears normal Nose: external nose normal and nares normal Face and sinus: normal facial exam Neck Neck: normal visual inspection and no lymphadenopathy Thyroid: thyroid normal Chest Chest palpation & inspection: normal inspection of the chest Resp Effort & Inspection: normal respiratory effort Auscultation: clear to auscultation bilaterally Cardio Rate: regular rate Rhythm: regular rhythm Heart Sounds: S1 normal and S2 normal GI Inspection: normal to inspection and non-distended Palpation: soft and no hepatosplenomegaly Other: enlarged fibroid uterus Musc Other: gross motor intact no deficits, full bilateral strength Skin General: no rashes or lesions noted Neuro General: patient alert, patient awake, moves all extremities and no focal motor deficits Motor: muscle tone normal throughout Extrem General: normal to inspection and no pedal edema Psych Appearance: grossly normal Mental Status: mental status grossly normal Affect: normal affect Speech and Movement: speech and movement normal Coding Level of Care Code No Charge Diagnoses Abnormal uterine bleeding N93.9 Irregular menses N92.6 Uterine fibroid D25.9 Assessment and Plan Assessment and Plan (1) Abnormal uterine bleeding: Status: Acute (2) Irregular menses: Status: Acute (3) Uterine fibroid: Status: Acute Comment: discused options plan abdominal myomectomy Plan After discussing the patient's diagnosis and treatment plan options, patient wishes to proceed with surgical management. I have discussed with the patient the risks, benefits, and alternatives of the procedure which include but are not limited to risks of anesthesia, bleeding, infection, possible damage to bowel, bladder, or surrounding vasculature which could lead to additional surgery to evaluate any complications. Patient agrees to procedure and wishes to proceed. ACOG/uptodate references given for additional information regarding procedure.
[2025-01-24] VITALS (14 sets, daily range): BP systolic 101–110; BP diastolic 64–80; PULSE 64–102; RESP 16–20; TEMP 36.1–36.9; O2SAT 96–100; BMI 23.0
--- OUTSIDE RECORDS SUMMARY | 2025-01-24 06:25 | XMS RPT_ITS | CCD ---
Author Organization [facility] Care Team Providers Care Pit Furnace Operator Name Role Phone Gregory MCINTOSH, Dr. Oswald Primary Care Provider Gregory MCINTOSH, Dr. Oswald Referring Provider [phone] Bebo RUGBY LEAGUE FOOTBALLER-CRasheeda Attending Provider [phone] Bebo RUGBY LEAGUE FOOTBALLERNikosCRasheeda Referring Provider Gregory MCINTOSH, Dr. Oswald Primary Care Provider Bebo RUGBY LEAGUE FOOTBALLER-Rasheeda Duran Attending Provider Rasheeda Crews Referring Provider Dr. Margret Jenkins MD Primary Care Physician Rasheeda Crews Attending Physician Dr. Margret Jenkins MD Referring Provider [phone] Antonio MCINTOSH, Dr. Devries Attending Physician Kayce Alvarez Consulting Unavailable Kayce Alvarez Attending Unavailable Oleghe, Efewongbe Primary Care Unavailable Kayce Alvarez Admitting Unavailable Kayce Alvarez Attending Unavailable Oleghe, Efewongbe Primary Care Unavailable Kayce Alvarez Admitting Unavailable Rasheeda Lagunas Attending Unavailable Rasheeda Lagunas Referring Unavailable Oleghe, Efewongbe Primary Care Unavailable Rasheeda Lagunas Referring Unavailable Oleghe, Efewongbe Primary Care Unavailable Rasheeda Lagunas Attending Unavailable Rasheeda Lagunas Attending Unavailable Oleghe, Efewongbe Primary Care Unavailable Oleghe, Efewongbe Referring Unavailable Kayce Alvarez Attending Unavailable Oleghe, Efewongbe Primary Care Unavailable Oleghe, Efewongbe Referring Unavailable Kayce Alvarez Attending Unavailable Margret Jenkins Referring Unavailable Margret Jenkins Primary Care Unavailable Medications Current Medications Medication Drug Class(es) Dates Sig (Normalized) Sig (Original) Multivitamin,Tx-Iron-M inerals (Complete Multivitamin) tablet (4 sources) Start: 05-04-2019 Start: 05-04-2019 Multivitamin,T i-Spbg-Kjntfike (Complete Multivitamin) tablet Active 1 {tbl} PO DAILY May 04, 2019 1:00am Complies with drug therapy Start: 05-04-2019 Multivitamin,T s-Irpj-Gzddghcn (Complete Multivitamin) tablet Active 1 {tbl} PO DAILY May 04, 2019 1:00am Completed/Discontinued Medications Medication Drug Class(es) Dates Sig (Normalized) Sig (Original) calcium carbonate 1250 mg oral tablet (4 sources) Start: 12-15-2018 End: 02-16-2019 take 1 tablet by mouth once daily Calcium Carbonate 500 mg calcium (1,250 mg) tablet Discontinued 500 mg PO DAILY December 15, 2018 12:00am February 16, 2019 7:17pm escitalopram 10 mg oral tablet (4 sources) Serotonin Reuptake Inhibitor Start: 05-29-2020 End: 08-30-2021 take 1 tablet by mouth once daily Escitalopram Oxalate (Lexapro) 10 mg tablet Discontinued 10 mg PO DAILY 30 May 29, 2020 1:00am August 30, 2021 2:41pm naproxen 500 mg oral tablet (4 sources) Nonsteroidal Anti-inflammatory Drug Start: 05-29-2020 End: 08-30-2021 Naproxen 500 mg tablet Discontinued 500 mg PO 2 to 3 times per day as needed for pain 60 2 May 29, 2020 1:00am August 30, 2021 2:41pm administer with food or milk Problems Active Problems Problem Classification Problem Date Documented Date Episodic/Chronic Anxiety disorders (4 sources) Anxiety; Translations: [Anxiety disorder, unspecified] 08-30-2021 Chronic Comment on above: lexapro Benign neoplasm of uterus (3 sources) Uterine leiomyoma; Translations: [Leiomyoma of uterus, unspecified] 12-27-2024 Episodic Comment on above: discused options kate n abdominal myomectomy Malaise and fatigue (4 sources) Fatigue; Translations: [Other fatigue] 08-30-2021 Episodic Comment on above: cbc tsh vit d discus sed lifestyle interventions Menstrual disorders (12 sources) Irregular periods; Translations: [Irregular menstruation, unspecified] Onset: 07-07-2024 07-07-2024 Chronic Comment on above: ocp fu in 3-4 months Nonmalignant breast conditions (4 sources) Breast lump; Translations: [Unspecified lump in the left breast, overlapping quadrants] 08-30-2021 Episodic Comment on above: us ordered Other female genital disorders (5 sources) Abnormal uterine bleeding; Translations: [Abnormal uterine and vaginal bleeding, unspecified] 11-30-2024 Chronic Other female genital disorders (1 source) Abnormal uterine and vaginal bleeding, unspecified; Translations: [Abnormal uterine and vaginal bleeding, unspecified] Onset: 12-16-2024 Chronic Past or Other Problems Problem Classification Problem Date Documented Da te Episodic/Chronic Other screening for suspected conditions (not mental disorders or infectious disease) (1 source) Encounter for screening for malignant neoplasm of cervix; Translations: [Encounter for screening for malignant neoplasm of cervix] Onset: 07-12-2024 Episodic Results Test Name Value Interpretation Reference Range Facility CBC W/Diff, Automatedon 10-1 Absolute Lymph 2.45 X10 3/uL Normal 0.83-4.51 [facility] Comment on above: Performed By: #### B TSPAT, L100.0100 #### [facility] [address] [place], [address] Absolute Neut 3.2 X10 3/uL Normal 2.0-7.7 [facility] Comment on above: Performed By: #### B TSPAT, L100.0100 #### [facility] [address] [place], [address] Basophils/100 WBC (Bld) 0.5 % Normal 0-1 [facility] Comment on above: Performed By: #### B TSPAT, L100.0100 #### [facility] [address] [place], [address] Eosinophils/100 WBC (Bld) 0.8 % Normal 0-5 [facility] Comment on above: Performed By: #### B TSPAT, L100.0100 #### [facility] [address] [place], [address] Erythrocyte distribution width (RBC) [Ratio] 12.5 % Normal 11.6-14.6 [facility] Comment on above: Performed By: #### B TSPAT, L100.0100 #### [facility] [address] [place], [address] Hematocrit (Bld) [Volume fraction] 37.1 % Normal 37-47 [facility] Comment on above: Performed By: #### B TSPAT, L100.0100 #### [facility] [address] [place], [address] Hemoglobin (Bld) [Mass/Vol] 12.4 g/dL Normal 12.0-15.0 [facility] Comment on above: Performed By: #### B TSPAT, L100.0100 #### [facility] [address] [place], [address] IG% 0.200 Normal 0.0-0.9 [facility] Comment on above: Result Comment: IG% - Immature Granulocytes (promyelocytes, myelocytes and metamyelocytes) > 1% indicates that a LEFT SHIFT is Present. Performed By: #### B TSPAT, L100.0100 #### [facility] [address] [place], [address] Lymphocytes/100 WBC (Bld) 39.9 % Normal 19-41 [facility] Comment on above: Performed By: #### B TSPAT, L100.0100 #### [facility] [address] [place], [address] MCH (RBC) [Entitic mass] 29.6 pg Normal 27.0-32.0 [facility] Comment on above: Performed By: #### B TSPAT, L100.0100 #### [facility] [address] [place], [address] MCHC (RBC) [Mass/Vol] 33.4 g/dL Normal 32-36 [facility] Comment on above: Performed By: #### B TSPAT, L100.0100 #### [facility] [address] [place], [address] MCV (RBC) [Entitic vol] 88.5 fL Normal 81-99 [facility] Comment on above: Performed By: #### B TSPAT, L100.0100 #### [facility] [address] [place], [address] Monocytes/100 WBC (Bld) 6.2 % Normal 0-10 [facility] Comment on above: Performed By: #### Lance TSPAT, L100.0100 #### [facility] [address] [place], [address] Neutrophils/100 WBC (Bld) 52.4 % Normal 47-70 [facility] Comment on above: Performed By: #### B TSPAT, L100.0100 #### [facility] [address] [place], [address] Nucleated RBC (Bld) [#/Vol] 0 10*3/uL Normal 0-5 [facility] Comment on above: Performed By: #### B TSPAT, L100.0100 #### [facility] [address] [place], [address] Platelet mean volume (Bld) [Entitic vol] 10.2 fL Normal 6.2-12.0 [facility] Comment on above: Performed By: #### B TSPAT, L100.0100 #### [facility] [address] [place], [address] Platelets (Bld) [#/Vol] 287 10*3/uL Normal 150-450 [facility] Comment on above: Performed By: #### B TSPAT, L100.0100 #### [facility] [address] [place], [address] RBC (Bld) [#/Vol] 4.19 10*6/uL Low 4.2-5.[address] [facility] Comment on above: Performed By: #### B TSPAT, L100.0100 #### [facility] [address] [place], [address] RDW SD 40.7 fl Normal 35.1-43.9 [facility] Comment on above: Performed By: #### B TSPAT, L100.0100 #### [facility] [address] [place], [address] WBC (Bld) [#/Vol] 6.1 10*3/uL Normal 4.4-11.0 [facility] Comment on above: Performed By: #### Lance TSPAT, L100.0100 #### [facility] [address] [place], [address] Type AND Screen - PAT ONLYon 01-19-2025 Ab SCREEN GEL Negative Normal [facility] Comment on above: Order Comment: Surge ry Date: 01/24/25Reason for Laboratory Test [id number] Performed By: #### Lance TSPAT, L100.0100 ####[facility] [address] [place], [address] Voice Coach Office Visit Reporton 01-05-2025 Voice Coach Office Visit Report [facility] [address], [address] [place] [address] OFFICE VISIT Date of Service: 01/05/25 MR#: [id number] Acct: [id number] Name: MELISSA REINOSO Marquis Rep #: [id number] : 2000 Provider: Dr. Kayce bains MD Age/Sex: 24/F [place] [facility] [place]: Signed Intake Vital Signs 12/22/24 14:35 01/05/25 08:48 Height 5 ft 3 in 5 ft 3 in Weight: 134 lb 1 oz 130 lb 5 oz BMI 23.7 23.1 BP 116/69 108/72 Intake Visit Reasons: abdominal myomectomy Wash Oil Pump Operator Helper Required: No Is patient in pain?: No Allergies No Known Allergies Allergy (Verified 01/05/25 08:50) Medications ???Medication ???Instructions ???Recorded ???Confirmed ???Type multivitamin,tx-iron-m inerals 1 tab PO DAILY 05/04/19 01/05/25 H istory (Complete Multivitamin tablet) Is last menstrual period known: Yes Last Menstrual Period: 12/15/24 Post menopausal: No Patient : No : No PFSH Medical History Heart murmur Surgical History S/P tooth extraction Family History Grandfather Colon cancer Grandmother Cancer Father Diabetes Social History (Updated 01/05/25 @ 08:51 by Elizabeth Mejia) household members: spouse housing: house current occupational status: employed current occupation: [employer] Smoking Status: Never smoker alcohol intake: never substance use type: does not use frequency: does not exercise seatbelt use: always additional social history: Ismael MONICA abdominal myomectomy Details: The patient is a 24-year-old female presenting with preoperative planning for the removal of a uterine fibroid. The uterine fibroid is approximately 7 cm in size and is located at the top of the uterus, not in a high-risk area but large enough to warrant removal before . The fibroid has been associated with symptoms such as cramping, which may be attributed to its presence. The patient has a history of anemia, which is being monitored, especially in the context of heavy menstrual bleeding. Blood counts were checked in July, and the patient is advised to take iron supplements to manage anemia. Attestation: Documentation on this patient encounter was supported using ambient scribe technology/ voice AI technology. The patient consented to recording for the purpose of documenting the encounter. Provider reviewed content of the generated note prior to signature. Female Reproductive History Last Menstrual Period: 12/15/24 Menopausal Symptoms: No night sweats History 0 Elective abortions Hx Para Spontaneous abortions Hx # Term Pregnancies Ectopic pregnancies Hx # Pregnancies Multiple births # of living children ROS Const Constitutional: Denies fatigue, night sweats, weight gain or weight loss ENT ENT: Reports system reviewed and no additional complaints, except as documented Cardio Card: Denies chest pain Resp Resp: Denies cough or dyspnea GI GI: Reports as per HPI and abdominal pain; Denies constipation, nausea or vomiting : Denies nipple discharge, urinary frequency, urinary incontinence, urinary hesitancy, urinary urgency, vaginal discharge, vaginal dryness, vaginal odor or vaginal pruritus Musc Musc: Denies arthralgias, back pain or muscle weakness Skin Skin/Breast: Denies alopecia, change in hair, dry skin, breast mass, breast pain, breast skin changes or nipple discharge Neuro Neuro: Reports system reviewed and no additional complaints, except as documented Psych Psych: Reports system reviewed and no additional complaints, except as documented Endo Endo: Denies cold intolerance, excessive sweating, heat intolerance or polydipsia Kasi/Lymph Hematologic/Lymphatic: Denies easy bleeding, Denies easy bruising and Denies lymphadenopathy Exam Const General: cooperative, healthy appearing, comfortable and no acute distress Orientation: alert [facility] Head: normal to inspection and normocephalic Ears: hearing grossly normal bilaterally and external ears normal Nose: external nose normal and nares normal Face and sinus: normal facial exam Neck Neck: normal visual inspection and no lymphadenopathy Thyroid: thyroid normal Chest Chest palpation inspection: normal inspection of the chest Resp Effort Inspection: normal respiratory effort Auscultation: clear to auscultation bilaterally Cardio Rate: regular rate Rhythm: regular rhythm Heart Sounds: S1 normal and S2 normal GI Inspection: normal to inspection and non-distended Palpation: soft and no hepatosplenomegaly Other: enlarged fibroid uterus Musc Other: gross motor intact no deficits, (more content not included)... Normal [facility] Voice Coach Office Visit Reporton 12-22-2024 Voice Coach Office Visit Report [facility] [address], [address] [place] [address] OFFICE VISIT Date of Service: 12/22/24 MR#: [id number] Acct: [id number] Name: MELISSA REINOSO Rep #: [id number] : 2000 Provider: Dr. Kayce bains MD Age/Sex: 24/F [place] [facility] [place]: Signed Intake Vital Signs 07/07/24 13:37 12/22/24 14:33 12/22/24 14:35 Height 5 ft 3 in 5 ft 3 in 5 ft 3 in Weight: 138 lb 134 lb 1 oz 134 lb 1 oz BMI 24.4 23.7 23.7 BP 121/79 H 116/69 116/69 Intake Visit Reasons: SURGICAL CONSULT Wash Oil Pump Operator Helper Required: No Is patient in pain?: No Allergies No Known Allergies Allergy (Verified 12/22/24 14:35) Medications ???Medication ???Instructions ???Recorded ???Confirmed ???Type multivitamin,tx-iron-m inerals 1 tab PO DAILY 05/04/19 12/22/24 H istory (Complete Multivitamin tablet) Is last menstrual period known: Yes Last Menstrual Period: 12/13/24 Post menopausal: No Patient : No : No PFSH Medical History (Updated 12/27/24 @ 13:[address] Kayce Alvarez MD) Heart murmur Surgical History S/P tooth extraction Family History Grandfather Colon cancer Grandmother Cancer Father Diabetes Social History household members: spouse housing: house Smoking Status: Never smoker alcohol intake: never substance use type: does not use frequency: does not exercise seatbelt use: always additional social history: Works at [employer]ICAL [employer] Details: MELISSA REINOSO is a 24 year old who presents for heavy irregular mensesa dn lower pelvic pain, enlarged uterus with fibroid. she is wanting to conceive eventually. she saw the RUGBY LEAGUE FOOTBALLER and was diagnose with a uterine fibroid. Female Reproductive History Last Menstrual Period: 12/13/24 Menopausal Symptoms: No night sweats History 0 Elective abortions Hx Para Spontaneous abortions Hx # Term Pregnancies Ectopic pregnancies Hx # Pregnancies Multiple births # of living children ROS Const Constitutional: Denies fatigue, night sweats, weight gain or weight loss ENT ENT: Reports system reviewed and no additional complaints, except as documented Cardio Card: Denies chest pain Resp Resp: Denies cough or dyspnea GI GI: Reports as per HPI and abdominal pain; Denies constipation, nausea or vomiting : Denies nipple discharge, urinary frequency, urinary incontinence, urinary hesitancy, urinary urgency, vaginal discharge, vaginal dryness, vaginal odor or vaginal pruritus Musc Musc: Denies arthralgias, back pain or muscle weakness Skin Skin/Breast: Denies alopecia, change in hair, dry skin, breast mass, breast pain, breast skin changes or nipple discharge Neuro Neuro: Reports system reviewed and no additional complaints, except as documented Psych Psych: Reports system reviewed and no additional complaints, except as documented Endo Endo: Denies cold intolerance, excessive sweating, heat intolerance or polydipsia Kasi/Lymph Hematologic/Lymphatic: Denies easy bleeding, Denies easy bruising and Denies lymphadenopathy Exam Const General: cooperative, healthy appearing, comfortable and no acute distress Orientation: alert [facility] Head: normal to inspection and normocephalic Ears: hearing grossly normal bilaterally and external ears normal Nose: external nose normal and nares normal Face and sinus: normal facial exam Neck Neck: normal visual inspection and no lymphadenopathy Thyroid: thyroid normal Chest Chest palpation inspection: normal inspection of the chest Resp Effort Inspection: normal respiratory effort Auscultation: clear to auscultation bilaterally Cardio Rate: regular rate Rhythm: regular rhythm Heart Sounds: S1 normal and S2 normal GI Inspection: normal to inspection and non-distended Palpation: soft and no hepatosplenomegaly Other: enlarged fibroid uterus Musc Other: gross motor intact no deficits, full bilateral strength Skin General: no rashes or lesions noted Neuro General: patient alert, patient awake, moves all extremities and no focal motor deficits Motor: muscle tone normal throughout Extrem General: normal to inspection and no pedal edema Psych Appearance: grossly normal Mental Status: mental status grossly normal Affect: normal affect Speech and Movement: speech and movement normal Coding Level of Care Code Off vis,est,level 4 Diagnoses Abnormal uterine bleeding N93.9 Irregular menses N92.6 Uterine fibroid D25.9 Assessment and Plan Assessment and Plan (1) Abnormal uterine bleeding: Status: Acute (2) Irregular menses: Status: (more content not included)... Normal [facility] Pelvic w/ Transvaginalon 09- 06-2025 Pelvic w/ Transvaginal [facility] Imaging Services [address] [place], [place] [id number] Pelvic w/ Transvaginal MR#: [id number] Acct: [id number] Name: MELISSA REINOSO Rep #: [id number] : 2000 24 From: Ambrose britton MD PCP: Dr. Margret Jenkins MD Status: REG CLI Study: Pelvic w/ Transvaginal Date of Exam: 12/10/24 Exam# [id number] Ordering Dr: Rasheeda Lagunas RUGBY LEAGUE FOOTBALLER-C PROCEDURE: PELVIC W/ TRANSVAGINAL REASON FOR EXAM: AUB TECHNIQUE: Procedure Code: [id number] Modality: US Procedure: PELVIC W/ TRANSVAGINAL COMPARISON: None FINDINGS: LMP: November 05, 2024. Measurements: Uterus: 8.2 cm x 5.7 cm x 4.2 cm with a volume of 101.62 mL Endometrial Thickness: 8.3 mm Right Ovary: 3.8 cm x 1.4 cm x 1.7 cm with a volume of 3.88 mL. Left Ovary: 3.9 cm x 4.1 cm x 2.1 cm with a volume of 17.12 mL. TRANSABDOMINAL: Uterus: There is a 6.8 cm x 7.1 cm x 5.6 cm fibroid. Endometrium: Unremarkable. Right ovary: Normal size and echotexture. Left ovary: Normal size and echotexture. Other: No large pelvic mass identified. Transvaginal sonography was performed to better visualize the endometrium. TRANSVAGINAL: Uterus: Anteverted. 6.8 cm x 7.1 cm 5.6 cm uterine fibroid. Endometrium: Normal echotexture. Right ovary: Normal size and echotexture. Left ovary: Normal size and echotexture. Other adnexal findings: None. Cul-de-sac: No free intraperitoneal fluid identified. Tenderness: No tenderness US/Pelvic w/ Transvaginal IMPRESSION: 6.8 cm 7.1 cm 5.6 cm fundal fibroid. Reading Location: [facility] CC: YAMILET Lagunas; Dr. Margret Jenkins MD Veneer Patcher: Signed Normal [facility] PAP I-G w/rfx hrHPV-Aptimaon 07-12-2024 ADEQ Comment Normal . [facility] Comment on above: Order Comment: Speci men Comment: [id number] Comment: Source.............Cervix;EndocervixSpecimen Comment: No. of containers..01 ThinPrep Vial Result Comment: Sati sfactory for evaluation. No endocervical component is identified. Performed By: #### L 7400.0353 ####[facility] [address] [facility] [place], [address] COMM . Normal . [facility] Comment on above: Order Comment: Speci men Comment: [id number] Comment: Source.............Cervix;EndocervixSpecimen Comment: No. of containers..01 ThinPrep Vial Performed By: #### L 7400.0353 ####[facility] [address] [facility] [place], [address] COMMENT Comment Normal . [facility] Comment on above: Order Comment: Speci men Comment: [id number] Comment: Source.............Cervix;EndocervixSpecimen Comment: No. of containers..01 ThinPrep Vial Result Comment: This liquid based ThinPrep(R) pap test was screened with the use of an image guided system. Performed By: #### L 7400.0353 ####[facility] [address] [facility] [place], [address] DIAG Comment Normal . [facility] Comment on above: Order Comment: Speci men Comment: [id number] Comment: Source.............Cervix;EndocervixSpecimen Comment: No. of containers..01 ThinPrep Vial Result Comment: NEGA TIVE FOR INTRAEPITHELIAL LESION OR MALIGNANCY. Performed By: #### L 7400.0353 ####[facility] [address] [place], [place], [id number] HPV RFLX Comment Normal . [facility] Comment on above: Order Comment: Speci men Comment: [id number] Comment: Source.............Cervix;EndocervixSpecimen Comment: No. of containers..01 ThinPrep Vial Result Comment: The HPV DNA reflex criteria were not met with this specimen result therefore, no HPV testing was performed. Performed at: [facility] [address] [place] [id number] Yard Laborer: Sage Booth MD, Phone: [phone] Performed at: - [address] [id number] Yard Laborer: Brooklynn Bautista MD, Phone: [phone] Performed By: #### L 7400.0353 ####[facility] [address] [place], [place], [id number] PAPSMR Comment Normal . [facility] Comment on above: Order Comment: Speci men Comment: [id number] Comment: Source.............Cervix;EndocervixSpecimen Comment: No. of containers..01 ThinPrep Vial Result Comment: The Pap smear is a screening test designed to aid in the detection of premalignant and malignant conditions of the uterine cervix. It is not a diagnostic procedure and should not be used as the sole means of detecting cervical cancer. Both false-positive and false-negative reports do occur. Performed By: #### L 7400.0353 ####[facility] [address] [place], [place], [id number] PERFORM Comment Normal . [facility] Comment on above: Order Comment: Speci men Comment: [id number] Comment: Source.............Cervix;EndocervixSpecimen Comment: No. of containers..01 ThinPrep Vial Result Comment: Monica Segal, Programmer Developer (ASCP) Performed By: #### L 7400.0353 ####[facility] [address] [place], [place], [id number] Absolute neutrophil countOrd ered By: Rasheeda Lagunas on 07-07-2024 Neutrophils (Bld) [#/Vol] 4.4 10*3/uL 2.0-7.7 [facility] Anion gap in Serum or Plasma Ordered By: Rasheeda Lagunas on 07-07-2024 Anion gap [Moles/Vol] 13 mmol/L 5-15 [facility] BUN/creatinine ratioOrdered By: Rasheeda Lagunas on 07-07-2024 Urea nitrogen/Creatinine [Mass ratio] 14.9 mg/mg 10-20 [facility] Basophil percentageOrdered B y: Rasheeda Lagunas on 07-07-2024 Basophils/100 WBC (Bld) 0.3 % 0-1 [facility] Bilirubin, totalOrdered By: Rasheeda Lagunas on 07-07-2024 Bilirubin [Mass/Vol] 0.25 mg/dL 0.00-1.30 [facility] CBC W/Diff, Automatedon Absolute Lymph 1.97 X10 3/uL Normal 0.83-4.51 [facility] Comment on above: Performed By: #### L 506.1001, L500.4050, L100.0100, L506.0400, L501.9520 #### [facility] [address] [place], [place], [id number] Absolute Neut 4.4 X10 3/uL Normal 2.0-7.7 [facility] Comment on above: Performed By: #### L 506.1001, L500.4050, L100.0100, L506.0400, L501.9520 #### [facility] [address] [place], [address] Basophils/100 WBC (Bld) 0.3 % Normal 0-1 [facility] Comment on above: Performed By: #### L 506.1001, L500.4050, L100.0100, L506.0400, L501.9520 #### [facility] [address] [place], [address] Eosinophils/100 WBC (Bld) 0.7 % Normal 0-5 [facility] Comment on above: Performed By: #### L 506.1001, L500.4050, L100.0100, L506.0400, L501.9520 #### [facility] [address] [place], [address] Erythrocyte distribution width (RBC) [Ratio] 13.2 % Normal 11.6-14.6 [facility] Comment on above: Performed By: #### L 506.1001, L500.4050, L100.0100, L506.0400, L501.9520 #### [facility] [address] [place], [address] Hematocrit (Bld) [Volume fraction] 37.7 % Normal 37-47 [facility] Comment on above: Performed By: #### L 506.1001, L500.4050, L100.0100, L506.0400, L501.9520 #### [facility] [address] [place], [address] Hemoglobin (Bld) [Mass/Vol] 12.6 g/dL Normal 12.0-15.0 [facility] Comment on above: Performed By: #### L 506.1001, L500.4050, L100.0100, L506.0400, L501.9520 #### [facility] [address] [place], [address] IG% 0.400 Normal 0.0-0.9 [facility] Comment on above: Result Comment: IG% - Immature Granulocytes (promyelocytes, myelocytes and metamyelocytes) > 1% indicates that a LEFT SHIFT is Present. Performed By: #### L 506.1001, L500.4050, L100.0100, L506.0400, L501.9520 #### [facility] [address] [place], [address] Lymphocytes/100 WBC (Bld) 28.3 % Normal 19-41 [facility] Comment on above: Performed By: #### L 506.1001, L500.4050, L100.0100, L506.0400, L501.9520 #### [facility] [address] [place], [address] MCH (RBC) [Entitic mass] 29.4 pg Normal 27.0-32.0 [facility] Comment on above: Performed By: #### L 506.1001, L500.4050, L100.0100, L506.0400, L501.9520 #### [facility] [address] [place], [address] MCHC (RBC) [Mass/Vol] 33.4 g/dL Normal 32-36 [facility] Comment on above: Performed By: #### L 506.1001, L500.4050, L100.0100, L506.0400, L501.9520 #### [facility] [address] [place], [address] MCV (RBC) [Entitic vol] 87.9 fL Normal 81-99 [facility] Comment on above: Performed By: #### L 506.1001, L500.4050, L100.0100, L506.0400, L501.9520 #### [facility] [address] [place], [address] Monocytes/100 WBC (Bld) 6.7 % Normal 0-10 [facility] Comment on above: Performed By: #### L 506.1001, L500.4050, L100.0100, L506.0400, L501.9520 #### [facility] [address] [place], [address] Neutrophils/100 WBC (Bld) 63.6 % Normal 47-70 [facility] Comment on above: Performed By: #### L 506.1001, L500.4050, L100.0100, L506.0400, L501.9520 #### [facility] [address] [place], [address] Nucleated RBC (Bld) [#/Vol] 0 10*3/uL Normal 0-5 [facility] Comment on above: Performed By: #### L 506.1001, L500.4050, L100.0100, L506.0400, L501.9520 #### [facility] [address] [place], [address] Platelet mean volume (Bld) [Entitic vol] 10.3 fL Normal 6.2-12.0 [facility] Comment on above: Performed By: #### L 506.1001, L500.4050, L100.0100, L506.0400, L501.9520 #### [facility] [address] [place], [address] Platelets (Bld) [#/Vol] 268 10*3/uL Normal 150-450 [facility] Comment on above: Performed By: #### L 506.1001, L500.4050, L100.0100, L506.0400, L501.9520 #### [facility] [address] [place], [address] RBC (Bld) [#/Vol] 4.29 10*6/uL Normal 4.2-5.[address] [facility] Comment on above: Performed By: #### L 506.1001, L500.4050, L100.0100, L506.0400, L501.9520 #### [facility] [address] [place], [address] RDW SD 42.4 fl Normal 35.1-43.9 [facility] Comment on above: Performed By: #### L 506.1001, L500.4050, L100.0100, L506.0400, L501.9520 #### [facility] [address] [place], [address] WBC (Bld) [#/Vol] 7.0 10*3/uL Normal 4.4-11.0 [facility] Comment on above: Performed By: #### L 506.1001, L500.4050, L100.0100, L506.0400, L501.9520 #### [facility] [address] [place], [address] Carbon dioxide, total [Moles /volume] in Central venous bloodOrdered By: Rasheeda Lagunas on 07-07-2024 CO2 [Moles/Vol] 25.2 mmol/L 21.0-32.0 [facility] Chloride assayOrdered By: Kelly Lagunas on 07-07-2024 Chloride [Moles/Vol] 102 mmol/L 98-108 [facility] Comprehensive Metabolic Prof ilon 07-07-2024 Albumin [Mass/Vol] 4.9 g/dL Normal 3.5-5.0 [facility] Comment on above: Performed By: #### L 506.1001, L500.4050, L100.0100, L506.0400, L501.9520 #### [facility] [address] [place], [address] Albumin/Globulin [Mass ratio] 1.9 {ratio} Normal 0.9-2.4 [facility] Comment on above: Performed By: #### L 506.1001, L500.4050, L100.0100, L506.0400, L501.9520 #### [facility] [address] [place], [address] ALK PHOS 39 U/L Normal 35-104 [facility] Comment on above: Performed By: #### L 506.1001, L500.4050, L100.0100, L506.0400, L501.9520 #### [facility] [address] [place], [address] ALT [Catalytic activity/Vol] 23 U/L Normal <=34 [facility] Comment on above: Performed By: #### L 506.1001, L500.4050, L100.0100, L506.0400, L501.9520 #### [facility] [address] [place], [address] AST [Catalytic activity/Vol] 28 U/L Normal <=31 [facility] Comment on above: Performed By: #### L 506.1001, L500.4050, L100.0100, L506.0400, L501.9520 #### [facility] [address] [place], [address] Bilirubin [Mass/Vol] 0.25 mg/dL Normal 0.00-1.30 [facility] Comment on above: Performed By: #### L 506.1001, L500.4050, L100.0100, L506.0400, L501.9520 #### [facility] [address] [place], [address] BUN/CRE 14.9 RATIO Normal 10-20 [facility] Comment on above: Performed By: #### L 506.1001, L500.4050, L100.0100, L506.0400, L501.9520 #### [facility] [address] [place], [address] Calcium [Mass/Vol] 9.7 mg/dL Normal 7.6-11.0 [facility] Comment on above: Performed By: #### L 506.1001, L500.4050, L100.0100, L506.0400, L501.9520 #### [facility] [address] [place], [address] Chloride [Moles/Vol] 102 mmol/L Normal 98-108 [facility] Comment on above: Performed By: #### L 506.1001, L500.4050, L100.0100, L506.0400, L501.9520 #### [facility] [address] [place], [address] CO2 [Moles/Vol] 25.2 mmol/L Normal 21.0-32.0 [facility] Comment on above: Performed By: #### L 506.1001, L500.4050, L100.0100, L506.0400, L501.9520 #### [facility] [address] [place], [address] Creatinine [Mass/Vol] 0.69 mg/dL Low 0.70-1.20 [facility] Comment on above: Performed By: #### L 506.1001, L500.4050, L100.0100, L506.0400, L501.9520 #### [facility] [address] [place], [address] GAP 13 Normal 5-15 [facility] Comment on above: Performed By: #### L 506.1001, L500.4050, L100.0100, L506.0400, L501.9520 #### [facility] [address] [place], [address] GFR/1.73 sq M.predicted among non-blacks MDRD (S/P/Bld) [Vol rate/Area] 124 mL/min/{1.73_m2} Normal >60 [facility] Comment on above: Result Comment: mL/m in/1.73m2 CKD-EPI Creatinine Equation (2020) Performed By: #### L 506.1001, L500.4050, L100.0100, L506.0400, L501.9520 #### [facility] [address] [place], [address] Globulin (S) [Mass/Vol] 2.5 g/dL Normal 2.2-4.2 [facility] Comment on above: Performed By: #### L 506.1001, L500.4050, L100.0100, L506.0400, L501.9520 #### [facility] [address] [place], [address] Glucose [Mass/Vol] 88 mg/dL Normal 70-99 [facility] Comment on above: Performed By: #### L 506.1001, L500.4050, L100.0100, L506.0400, L501.9520 #### [facility] [address] [place], [address] Potassium [Moles/Vol] 3.9 mmol/L Normal 3.3-5.1 [facility] Comment on above: Performed By: #### L 506.1001, L500.4050, L100.0100, L506.0400, L501.9520 #### [facility] [address] [place], [address] Sodium [Moles/Vol] 140 mmol/L Normal 133-145 [facility] Comment on above: Performed By: #### L 506.1001, L500.4050, L100.0100, L506.0400, L501.9520 #### [facility] [address] [place], [address] T PROT 7.4 g/dL Normal 5.9-8.4 [facility] Comment on above: Performed By: #### L 506.1001, L500.4050, L100.0100, L506.0400, L501.9520 #### [facility] [address] [place], [address] Urea nitrogen [Mass/Vol] 10 mg/dL Normal 4-19 [facility] Comment on above: Performed By: #### L 506.1001, L500.4050, L100.0100, L506.0400, L501.9520 #### [facility] [address] [place], [address] Eosinophil percentageOrdered By: Rasheeda Lagunas on 07-07-2024 Eosinophils/100 WBC (Bld) 0.7 % 0-5 [facility] Erythrocyte distribution wid th (RBC) [Ratio]Ordered By: Rasheeda Lagunas on 07-07-2024 Erythrocyte distribution width (RBC) [Entitic vol] 42.4 fL 35.1-43.9 [facility] Erythrocyte distribution wid th ratioOrdered By: Rasheeda Lagunas on 07-07-2024 Erythrocyte distribution width (RBC) [Ratio] 13.2 % 11.6-14.6 [facility] GFR/1.73 sq M.predicted emily g non-blacks MDRD (S/P/Bld) [Vol rate/Area]Ordered By: Rasheeda Lagunas on 07-07-2024 Estimated GFR (MDRD) Non-Af Amer 124 >60 [facility] Comment on above: mL/min/1.73m2 CKD-EP I Creatinine Equation (2020) Hematocrit Auto (Bld) [Volum e fraction]Ordered By: Rasheeda Lagunas on 07-07-2024 Hematocrit (Bld) [Volume fraction] 37.7 % 37-47 [facility] Hemoglobin measurementOrdere d By: Rasheeda Lagunas on 07-07-2024 Hemoglobin (Bld) [Mass/Vol] 12.6 g/dL 12.0-15.0 [facility] Immature granulocytes/100 WB C Auto (Bld)Ordered By: Rasheeda Lagunas on 07-07-2024 Immature granulocytes/100 WBC (Bld) 0.400 % 0.0-0.9 [facility] Comment on above: IG% - Immature Granu locytes (promyelocytes, myelocytes and metamyelocytes) > 1% indicates that a LEFT SHIFT is Present. Laboratory - Chemistry and C hemistry - challengeOrdered By: Rasheeda Lagunas on 07-07-2024 AST [Catalytic activity/Vol] 28 U/L <32 [facility] Lymphocytes Auto (Unsp spec) [#/Vol]Ordered By: Rasheeda Lagunas on 07-07-2024 Lymphocytes (Bld) [#/Vol] 1.97 10*3/uL 0.83-4.51 [facility] Lymphocytes/100 WBC Auto (Un sp spec)Ordered By: Rasheeda Lagunas on 07-07-2024 Lymphocytes/100 WBC (Bld) 28.3 % 19-41 [facility] MCV (mean corpuscular volume ) determinationOrdered By: Rasheeda Lagunas on 07-07-2024 MCV (RBC) [Entitic vol] 87.9 fL 81-99 [facility] Mean corpuscular hemoglobin (MCH) determinationOrdered By: Rasheeda Lagunas on 07-07-2024 MCH (RBC) [Entitic mass] 29.4 pg 27.0-32.0 [facility] Mean corpuscular hemoglobin concentration (MCHC) determinationOrdered By: Rasheeda Lagunas on 07-07-2024 MCHC (RBC) [Mass/Vol] 33.4 g/dL 32-36 [facility] Mean platelet volume determi nationOrdered By: Rasheeda Lagunas on 07-07-2024 Platelet mean volume (Bld) [Entitic vol] 10.3 fL 6.2-12.0 [facility] Monocyte percentageOrdered B y: Rasheeda Lagunas on 07-07-2024 Monocytes/100 WBC (Bld) 6.7 % 0-10 [facility] Neutrophil percentageOrdered By: Rasheeda Lagunas on 07-07-2024 Neutrophils/100 WBC (Bld) 63.6 % 47-70 [facility] Nucleated red blood cell per centageOrdered By: Rasheeda Lagunas on 07-07-2024 Nucleated RBC/100 WBC (Bld) [Ratio] 0 % 0-5 [facility] Voice Coach Office Visit Reporton 07-07-2024 Voice Coach Office Visit Report [facility] [address], [address] [place] [address] OFFICE VISIT Date of Service: 07/07/24 MR#: [id number] Acct: [id number] Name: MELISSA REINOSO Rep #: [id number] : 2000 Provider: YAMILET Tate Age/Sex: 24/F [place] [facility] [place]: Signed Intake Vital Signs 08/30/21 14:40 07/07/24 13:37 Height 5 ft 3 in 5 ft 3 in Weight: 138 lb BMI 24.4 BP 121/79 H 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 Is patient in pain?: No Allergies No Known Allergies Allergy (Verified 07/07/24 13:35) Medications ???Medication ???Instructions ???Recorded ???Confirmed ???Type multivitamin,tx-iron-m inerals 1 tab PO DAILY 05/04/19 07/07/24 H istory (Complete Multivitamin tablet) Is last menstrual period known: Yes Last Menstrual Period: 06/17/24 Post menopausal: No Patient : No : No Control Method[facility] History (Updated 07/07/24 @ 14:05 by YAMILET Gold) Heart murmur Surgical History S/P tooth extraction Family History Grandfather Colon cancer Grandmother Cancer Father Diabetes Social History (Updated 07/07/24 @ 13:51 by YAMILET Gold) household members: spouse housing: house Smoking Status: Never smoker alcohol intake: never substance use type: does not use frequency: does not exercise seatbelt use: always additional social history: Works at [employer] History 0 Elective abortions Hx Para Spontaneous [...] Pelvic Supp (more content not included)... Normal [facility] Platelet countOrdered By: Kelly Lagunas on 07-07-2024 Platelets (Bld) [#/Vol] 268 10*3/uL 150-450 [facility] Potassium (Unsp spec) [Mass/ Vol]Ordered By: Rasheeda Lagunas on 07-07-2024 Potassium [Moles/Vol] 3.9 mmol/L 3.3-5.1 [facility] RBC Auto (Bld) [#/Vol]Ordere d By: Rasheeda Lagunas on 07-07-2024 RBC (Bld) [#/Vol] 4.29 10*6/uL 4.2-5.[address] [facility] Serum creatinine measurement (mass/volume)Ordered By: Rasheeda Lagunas on 07-07-2024 Creatinine [Mass/Vol] 0.69 mg/dL Low 0.70-1.20 [facility] Serum globulin measurementOr dered By: Rasheeda Lagunas on 07-07-2024 Globulin (S) [Mass/Vol] 2.5 g/dL 2.2-4.2 [facility] Serum glucose measurement (m ass/volume)Ordered By: Rasheeda Lagunas on 07-07-2024 Glucose [Mass/Vol] 88 mg/dL 70-99 [facility] Serum or plasma alanine carr otransferase (ALT) measurementOrdered By: Rasheeda Lagunas on 07-07-2024 ALT [Catalytic activity/Vol] 23 U/L <35 [facility] Serum or plasma albumin germania urement (mass/volume)Ordered By: Rasheeda Lagunas on 07-07-2024 Albumin [Mass/Vol] 4.9 g/dL 3.5-5.0 [facility] Serum or plasma albumin/glob ulin mass ratioOrdered By: Rasheeda Lagunas on 07-07-2024 Albumin/Globulin [Mass ratio] 1.9 {ratio} 0.9-2.4 [facility] Serum or plasma alkaline jonathan sphatase measurementOrdered By: Rasheeda Lagunas on 07-07-2024 ALP [Catalytic activity/Vol] 39 U/L 35-104 [facility] Serum or plasma calcium germania urement (mass/volume)Ordered By: Rasheeda Lagunas on 07-07-2024 Calcium [Mass/Vol] 9.7 mg/dL 7.6-11.0 [facility] Serum or plasma urea nitroge n measurement (mass/volume)Ordered By: Rasheeda Lagunas on 07-07-2024 Urea nitrogen [Mass/Vol] 10 mg/dL 4-19 [facility] Sodium levelOrdered By: Pita Lagunas on 07-07-2024 Sodium [Moles/Vol] 140 mmol/L 133-145 [facility] T4 Free Directon 07-07-2024 T4 FREE DIRECT 1.20 ng/dL Normal 0.76-1.46 [facility] Comment on above: Performed By: #### L 506.1001, L500.4050, L100.0100, L506.0400, L501.9520 #### [facility] [address] [place], [place], [id number] T4 freeOrdered By: Rasheeda ochoa on 07-07-2024 Free T4 [Mass/Vol] 1.20 ng/dL 0.76-1.46 [facility] TSH DL <= 0.005 mIU/L QnOrde red By: Rasheeda Lagunas on 07-07-2024 Thyroid Stimulating Hormone (TSH) 1.430 uIU/mL 0.300-4.200 [facility] Thyroid Stim Hormone (TSH)on 07-07-2024 TSH 1.430 uIU/mL Normal 0.300-4.200 [facility] Comment on above: Performed By: #### L 506.1001, L500.4050, L100.0100, L506.0400, L501.9520 #### [facility] [address] [place], [place], [id number] Total proteinOrdered By: Duy Lagunas on 07-07-2024 Protein [Mass/Vol] 7.4 g/dL 5.9-8.4 [facility] Vitamin D, 25-hydroxyOrdered By: Rasheeda Lagunas on 07-07-2024 Vitamin D 25-Hydroxy 23.5 ng/mL Low 30-100 [facility] Comment on above: Vitamin D StatusDefi ciency: <20 ng/mL (50nmol/L)Insufficiency: 20-30 ng/mL (50-75 nmol/L)Sufficiency: 30-100 ng/mL (75-250 nmol/L)Toxicity: >100 ng/mL (>250 nmol/L) Vitamin D,25 Hydroxyon 07-07 Vitamin D 25-OH 23.5 ng/mL Low 30-100 [facility] Comment on above: Result Comment: Katia min D Status Deficiency: <20 ng/mL (50nmol/L) Insufficiency: 20-30 ng/mL (50-75 nmol/L) Sufficiency: 30-100 ng/mL (75-250 nmol/L) Toxicity: >100 ng/mL (>250 nmol/L) Performed By: #### L 506.1001, L500.4050, L100.0100, L506.0400, L501.9520 #### [facility] [address] [place] [address], [address] White blood cell (WBC) count Ordered By: Rasheeda Lagunas on 07-07-2024 WBC (Bld) [#/Vol] 7.0 10*3/uL 4.4-11.0 [facility] Vital Signs Date Time Vital Sign Value Performing Clinician Leon fitzgerald 01-05-2025 08:48-0400 Body height 160.[address] Margret Jenkins MD Work Phone: [facility] 01-05-2025 08:48-0400 Body mass index (BMI) [Ratio] 23.1 kg/m2 Dr. Margret Jenkins MD Work Phone: [facility] 01-05-2025 08:48-0400 Body weight 59.[address] Margret Jenkins MD Work Phone: [facility] 01-05-2025 08:48-0400 Diastolic blood pressure 72 mm[Hg] Dr. Margret Jenkins MD Work Phone: [facility] 01-05-2025 08:48-0400 Systolic blood pressure 108 mm[Hg] Dr. Margret Jenkins MD Work Phone: [facility] 12-22-2024 14:35-0400 Body height 160.[address] Margret Jenkins MD Work Phone: [facility] 12-22-2024 14:35-0400 Body mass index (BMI) [Ratio] 23.7 kg/m2 Dr. Margret Jenkins MD Work Phone: [facility] 12-22-2024 14:35-0400 Body weight 60.[address] Margret Jenkins MD Work Phone: [facility] 12-22-2024 14:35-0400 Diastolic blood pressure 69 mm[Hg] Dr. Margret Jenkins MD Work Phone: [facility] 12-22-2024 14:35-0400 Systolic blood pressure 116 mm[Hg] Dr. Margret Jenkins MD Work Phone: [facility] 07-07-2024 13:37-0400 Body height 160.[address] Margret Jenkins MD Work Phone: [facility] 07-07-2024 13:37-0400 Body mass index (BMI) [Ratio] 24.4 kg/m2 Dr. Margret Jenkins MD Work Phone: [facility] 07-07-2024 13:37-0400 Body weight 62.[address] Margret Jenkins MD Work Phone: [facility] 07-07-2024 13:37-0400 Diastolic blood pressure 79 mm[Hg] Dr. Margret Jenkins MD Work Phone: [facility] 07-07-2024 13:37-0400 Systolic blood pressure 121 mm[Hg] Dr. Margret Jenkins MD Work Phone: [facility] Encounters Encounter Date Encounter Type Care Provider Facility Start: 01-24-2025 ambulatory Kayce Quintero lit:[facility] Start: 01-23-2025 Encounter for other preprocedural examination Kayce Alvarez [facility] Start: 01-23-2025 ambulatory Kayce Quintero lity:[facility] Start: 01-05-2025 End: 01-05-[address] Kayce Alvarez MD -[facility] Work Phone: Start: 01-05-2025 End: 01-05-[address] Margret Jenkins MD Work Phone: [facility] Start: 12-22-2024 End: 12-22-[address] Kayce Alvarez MD -[facility] Work Phone: Start: 12-22-2024 End: 12-22-[address] Margret Jenkins MD Work Phone: -[facility] Start: 12-10-2024 End: 12-10-[address] Margret Jenkins MD Work Phone: -[facility] Start: 12-10-2024 End: 12-10-2024 Patient encounter procedure Rasheeda WOODARD -[facility] Work Phone: Start: 12-10-2024 End: 12-10-2024 ambulatory Rasheeda Lagunas Facility:[facility] Start: 07-07-2024 Encounter for gynecological examination (general) (routine) without abnormal findings Rasheeda Lagunas [facility] Start: 07-07-2024 End: 07-07-2024 Patient encounter procedure Rasheeda WOODARD -[facility] Work Phone: Start: 07-07-2024 End: 07-07-2024 Patient encounter status Rasheeda JAINC [facility] Start: 07-07-2024 End: 07-07-[address] Margret Jenkins MD Work Phone: [facility] Work Phone: Start: 07-07-2024 End: 07-07-2024 ambulatory Rasheeda Lagunas Facility:[facility] Procedures Date Procedure Procedure Detail Performing Clinician Start: 12-10-[address] Rogerio Jenkins MD Work Phone: Plan of Treatment Date Care Activity Detail Author Start: 07-07-2024 Liquid based cervica l cytology screening [facility] Path report.final Dx Spec [facility] Payers Date Payer Category Payer Self-pay 2024 Unknown [id number] Unknown [id number] 2.16.8 [id number] Unknown [id number] 2.16.8 [id number] Unknown [id number] 2.16.8 [id number] Unknown [id number] 2.16.8 [id number] Unknown [id number] 2.16.8 [id number] Unknown [id number] 2.16.8 [id number] Unknown [id number] 2.16.8 [id number] Social History Date Type Detail Facility Start: 07-07-2024 End: 01-05-2025 Tobacco smoking status NHIS Never smoked tobacco (finding) [facility] Start: 07-12-2024 Sex Female (finding) [facility] Start: 2000 Sex Assigned At Female [facility] Sex Female [facility] Clinical Note 01-23-2025 Note Date & Type Note Facility 01-23-2025 Note [facility] Medical Records Department [address] [place] [address] History Physical Exam 01/23/25 1735 MR#: [id number] Acct: [id number] Name: MELISSA REINOSO Rep #: [id number] : 2000 From: Kayce Alvarez MD PCP: Dr. 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 Is patient in pain?: No Allergies No Known Allergies Allergy (Verified 01/05/25 08:50) Medications ???Medication ???Instructions ???Recorded ???Confirmed ???Type multivitamin,tn-toyf-zgwndyan 1 tab PO DAILY 05/04/19 01/05/25 History (Complete Multivitamin tablet) Is last menstrual period known: Yes Last Menstrual Period: 12/15/24 Post menopausal: No Patient : No : No PFSH Medical History Heart murmur Surgical History S/P tooth extraction Family History Grandfather Colon cancer Grandmother Cancer Father Diabetes Social History (Updated 01/05/25 @ 08:51 by Elizabeth Mejia) household members: spouse housing: house current occupational status: employed current occupation: [employer] Smoking Status: Never smoker alcohol intake: never substance use type: does not use frequency: does not exercise seatbelt use: always additional social history: Ismael MONICA abdominal myomectomy Details: The patient is a 24-year-old female presenting with preoperative planning for the removal of a uterine fibroid. The uterine fibroid is approximately 7 cm in size and is located at the top of the uterus, not in a high-risk area but large enough to warrant removal before . The fibroid has been associated with symptoms such as cramping, which may be attributed to its presence. The patient has a history of anemia, which is being monitored, especially in the context of heavy menstrual bleeding. Blood counts were checked in July, and the patient is advised to take iron supplements to manage anemia. Attestation: Documentation on this patient encounter was supported using ambient scribe technology/ voice AI technology. The patient consented to recording for the purpose of documenting the encounter. Provider reviewed content of the generated note prior to signature. Female Reproductive History Last Menstrual Period: 12/15/24 Menopausal Symptoms: No night sweats History 0 Elective abortions Hx Para Spontaneous abortions Hx # Term Pregnancies Ectopic pregnancies Hx # Pregnancies Multiple births # of living children ROS Const Constitutional: Denies fatigue, night sweats, weight gain or weight loss ENT ENT: Reports system reviewed and no additional complaints, except as documented Cardio Card: Denies chest pain Resp Resp: Denies cough or dyspnea GI GI: Reports as per HPI and abdominal pain; Denies constipation, nausea or vomiting : Denies nipple discharge, urinary frequency, urinary incontinence, urinary hesitancy, urinary urgency, vaginal discharge, vaginal dryness, vaginal odor or vaginal pruritus Musc Musc: Denies arthralgias, back pain or muscle weakness Skin Skin/Breast: Denies alopecia, change in hair, dry skin, breast mass, breast pain, breast skin changes or nipple discharge Neuro Neuro: Reports system reviewed and no additional complaints, except as documented Psych Psych: Reports system reviewed and no additional complaints, except as documented Endo Endo: Denies cold intolerance, excessive sweating, heat intolerance or polydipsia Kasi/Lymph Hematologic/Lymphatic: Denies easy bleeding, Denies easy bruising and Denies lymphadenopathy Exam Const General: cooperative, healthy appearing, comfortable and no acute distress Orientation: alert [facility] Head: normal to inspection and normocephalic Ears: hearing grossly normal bilaterally and external ears normal Nose: external nose normal and nares normal Face and sinus: normal facial exam Neck Neck: normal visual inspection and no lymphadenopathy Thyroid: thyroid normal Chest Chest palpation inspection: normal inspection of the chest Resp Effort Inspection: normal respiratory effort Auscultation: clear to auscultation bilaterally Cardio Rate: regular rate Rhythm: regular rhythm Heart Sounds: S1 normal and S2 normal GI Inspection: normal to inspection and non-distended Palpation: soft and no hepatosplenomegaly Other: enlarged fibroid uterus Musc Other: g (more content not included)... [facility] Progress note 01-05-2025 Note Date & Type Note Facility 01-05-2025 Progress note [facility] Evaluation note 12-22-2024 Note Date & Type Note Facility 12-22-2024 Evaluation note Diagnosis Onset Date Resolution Abnormal uterine bleeding acute December 22, 2024 2:22pm Irregular menses acute Septembe r 2024 2:22pm Uterine fibroid acute December 22, 2024 2:22pm Abnormal uterine bleeding acute January 05 8:40am Irregular menses acute January 05, 2025 8:40am Uterine fibroid acute January 052024 8:40am [facility] Work Phone: Radiology Diagnostic study note 12-12-2024 Note Date & Type Note Facility 12-12-2024 Radiology Diagnostic study note [facility] Imaging Services [address] [place], [place] [id number] Pelvic w/ Transvaginal MR#: [id number] Acct: [id number] Name: MELISSA REINOSO Rep #: [id number] : 2000 24 From: Steven Samuels MD PCP: Dr. 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 Measurements: Uterus: 8.2 cm x 5.7 cm x 4.2 cm with a volume of 101.62 mL Endometrial Thickness: 8.3 mm Right Ovary: 3.8 cm x 1.4 cm x 1.7 cm with a volume of 3.88 mL. Left Ovary: 3.9 cm x 4.1 cm x 2.1 cm with a volume of 17.12 mL. TRANSABDOMINAL: Uterus: There is a 6.8 cm x 7.1 cm x 5.6 cm fibroid. Endometrium: Unremarkable. Right ovary: Normal size and echotexture. Left ovary: Normal size and echotexture. Other: No large pelvic mass identified. Transvaginal sonography was performed to better visualize the endometrium. TRANSVAGINAL: Uterus: Anteverted. 6.8 cm x 7.1 cm 5.6 cm uterine fibroid. Endometrium: Normal echotexture. Right ovary: Normal size and echotexture. Left ovary: Normal size and echotexture. Other adnexal findings: None. Cul-de-sac: No free intraperitoneal fluid identified. Tenderness: No tenderness US/Pelvic w/ Transvaginal IMPRESSION: 6.8 cm 7.1 cm 5.6 cm fundal fibroid. Reading Location: [id number] CC: YAMILET Lagunas; Dr. Margret Jenkins MD ~ Veneer Patcher: Signed [facility] Evaluation note 07-07-2024 Note Date & Type Note Facility 07-07-2024 Evaluation note Diagnosis Onset Date Resolution Irregular menses acute July 1:33pm Encounter for routine gynecological examination noneactive July 07, 2024 1:33pm [facility] Work Phone: Evaluation note Note Date & Type Note Facility Evaluation note No assessment information availa [facility] Work Phone: Progress note Note Date & Type Note Facility Progress note Note Date/Time January 05, 2025 9:32am [facility] [address] [place] [address], [address] [place] [address] OFFICE VISIT Date of Service: 01/05/25 MR#: [id number] Acct: [id number] Name: MELISSA REINOSO Rep #: [id number] : 2000 Provider: Dr. 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 Is patient in pain?: No Allergies No Known Allergies Allergy (Verified 01/05/25 08:50) Medications ?Medication ?Instructions ?Recorded ?Confirmed ?Type multivitamin,fd-jsrz-odxhumvi 1 tab PO DAILY 05/04/19 01/05/25 History (Complete Multivitamin tablet) Is last menstrual period known: Yes Last Menstrual Period: 12/15/24 Post menopausal: No Patient : No : No PFSH Medical History Heart murmur Surgical History S/P tooth extraction Family History Grandfather Colon cancer Grandmother Cancer Father Diabetes Social History (Updated 01/05/25 @ 08:51 by Elizabeth Mejia) household members: spouse housing: house current occupational status: employed current occupation: [employer] Smoking Status: Never smoker alcohol intake: never substance use type: does not use frequency: does not exercise seatbelt use: always additional social history: Ismael MONICA abdominal myomectomy Details: The patient is a 24-year-old female presenting with preoperative planning for the removal of a uterine fibroid. The uterine fibroid is approximately 7 cm in size and is located at the top of the uterus, not in a high-risk area but large enough to warrant removal before . The fibroid has been associated withsymptoms such as cramping, which may be attributed to its presence. The patient has a history of anemia, which is being monitored, especially in thecontext of heavy menstrual bleeding. Blood counts were checked in July, and thepatient is advised to take iron supplements to manage anemia. Attestation: Documentation on this patient encounter was supported using ambient scribe technology/ voice AI technology. The patient consented to recording for the purpose of documenting the encounter. Provider reviewed content of the generatednote prior to signature. Female Reproductive History Last Menstrual Period: 12/15/24 Menopausal Symptoms: No night sweats History 0 Elective abortions Hx Para Spontaneous abortions Hx # Term Pregnancies Ectopic pregnancies Hx # Pregnancies Multiple births # of living children ROS Const Constitutional: Denies fatigue, night sweats, weight gain or weight loss ENT ENT: Reports system reviewed and no additional complaints, except as documented Cardio Card: Denies chest pain Resp Resp: Denies cough or dyspnea GI GI: Reports as per HPI and abdominal pain; Denies constipation, nausea or vomiting : Denies nipple discharge, urinary frequency, urinary incontinence, urinary hesitancy, urinary urgency, vaginal discharge, vaginal dryness, vaginal odor or vaginal pruritus Musc Musc: Denies arthralgias, back pain or muscle weakness Skin Skin/Breast: Denies alopecia, change in hair, dry skin, breast mass, breast pain, breast skin changes or nipple discharge Neuro Neuro: Reports system reviewed and no additional complaints, except as documented Psych Psych: Reports system reviewed and no additional complaints, except as documented Endo Endo: Denies cold intolerance, excessive sweating, heat intolerance or polydipsia Kasi/Lymph Hematologic/Lymphatic: Denies easy bleeding, Denies easy bruising and Denies lymphadenopathy Exam Const General: cooperative, healthy appearing, comfortable and no acute distress Orientation: alert [facility] Head: normal to inspection and normocephalic Ears: hearing grossly normal bilaterally and external ears normal Nose: external nose normal and nares normal Face and sinus: normal facial exam Neck Neck: normal visual inspection and no lymphadenopathy Thyroid: thyroid normal Chest Chest palpation & inspection: normal inspection of the chest Resp Effort & Inspection: normal respiratory effort Auscultation: clear to auscultation bilaterally Cardio Rate: regular rate Rhythm: regular rhythm Heart Sounds: S1 normal and S2 normal GI Inspection: normal to inspection and non-distended Palpation: soft and no hepatosplenomegaly Other: enlarged fibroid uterus Musc Other: gross motor intact no deficits, full bilateral strength Skin General: no rashes or lesions noted Neuro General: patient alert, patient awake, moves all extremities and no focal motor deficits Motor: muscle tone normal throughout Extrem General: normal to inspection and no pedal edema Psych Appearance: grossly normal Mental Status: mental status grossly normal Affect: normal affect Speech and Movement: speech and movement normal Coding Level of Care Code No Charge Diagnoses Abnormal uterine bleeding N93.9 Irregular menses N92.6 Uterine fibroid D25.9 Assessment and Plan Assessment and Plan (1) Abnormal uterine bleeding: Status: Acute (2) Irregular menses: Status: Acute (3) Uterine fibroid: Status: Acute Comment: discused options plan abdominal myomectomy Plan After discussing the patient's diagnosis and treatment plan options, patient wishes to proceed with surgical management. I have discussed with the patient the risks, benefits, and alternatives of the procedure which include but are notlimited to risks of anesthesia, bleeding, infection, possible damage to bowel, bladder, or surrounding vasculature which could lead to additional surgery to evaluate any complications. Patient agrees to procedure and wishes to proceed. ACOG/uptodate references given for additional information regarding procedure. 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) July 07, 2024 1:33 pm Reason for Visit Admit Date Irregular menses July 07, 2024 1:33 pm Encounter for routine gynecological exam ination July 07, 2024 1:33pm Chief Complaint Admit Date AUB December 10, 2024 8:43am Chief Complaint Admit Date AUB December 10, 2024 8:43am SURGICAL CONSULT December 22, 2024 2:22pm Chief Complaint Admit Date AUB December 10, 2024 8:43am SURGICAL CONSULT December 22, 2024 2:22pm abdominal myomectomy January 05, 2025 8 :40am Reason for Visit Admit Date Abnormal uterine bleeding December 2:22pm Irregular menses December 22, 2024 2:22pm Uterine fibroid December 22, 2024 2:22pm Abnormal uterine bleeding January 05 8:40am Irregular menses January 05, 2025 8: 40am Uterine fibroid January 05, 2025 8: 40am Family History No Family History Records Found [...] 2024 End: July 07, 2024 Team Status: Active Member Role/Relationship Status Dates Dr. Margret Jenkins MD Primary Care Provider Active Team Status: Inactive Member Role/Relationship Status Dates Dr. Margret Jenkins MD Primary Care Provider Active Start: December 10, 2024 End: December 10, 2024 YAMILET Gold Attending Provider Active Start: December 10, 2024 End: December 10, 2024 YAMILET Gold Referring Provider Active Start: December 10, 2024 End: December 10, 2024 Team Status: Active Member Role/Relationship Status Dates Dr. Margret Jenkins MD Primary care physician Activ e Team Status: Inactive Member Role/Relationship Status Dates Dr. Margret Jenkins MD Primary care physician Activ e Start: December 10, 2024 End: December 10, 2024 YAMILET Gold Attending physician Active Start: December 10, 2024 End: December 10, 2024 YAMILET Gold Referring Provider Active Start: December 10, 2024 End: December 10, 2024 Team Status: Inactive Member Role/Relationship Status Dates Dr. Margret Jenkins MD Primary care physician Activ e Start: December 22, 2024 End: December 22, 2024 Dr. Margret Jenkins MD Referring Provider Active Start: December 22, 2024 End: December 22, 2024 Dr. Kayce Alvarez MD Attending physician Active Start: December 22, 2024 End: December 22, 2024 Team Status: Inactive Member Role/Relationship Status Dates Dr. Margret Jenkins MD Primary care physician Activ e Start: January 05, 2025 End: January 05, 2025 Dr. Margret Jenkins MD Referring Provider Active Start: January 05, 2025 End: January 05, 2025 Dr. Kayce Alvarez MD Attending physician Active Start: January 05, 2025 End: January 05, 2025 Goals (unrecognized section and content) Goals may be documented in a n alternate sectionGoals may be documented in an alternate sectionGoals may be documented in an alternate sectionGoals may be documented in an alternate section INFORMATION SOURCE (unrecogn ized section and content) DATE CREATED AUTHOR 01/23/2025 [facility] FOR RECORDS PERTAINING TO PATIENTS WHO ARE [...] BE BASED ON THE PRIMARY CLINICAL RECORDS. For Your Imagination [facility]. provides no warranty or guarantee of the accuracy or completeness of information in this document.
[2025-01-24] MEDS: Lactated Ringers 1,000 ML 15 ML IV ×2 (06:45→09:01)
[2025-01-24 06:51] LABS: Internal QC Validated? YES +Cl - CLEAR BKGD; Pregnancy, Urine Negative Negative; Record Kit Lot#,Urine Preg 0000980607
--- NOTE | 2025-01-24 07:05 | PCM.PRE.AN2 ---
ASA Classification* ASA Classification ASA Classification: 2 Assessment & Plan Anesthesia* Anesthesia Assessment Anesthesia Assessment: Discussed sedation and/or anesthesia options, risks, benefits, and alternatives with patient/parents/legal guardian/POA. Questions invited. The patient/parents/legal guardian/POA seems to understand and agrees to proceed with anesthesia plan. Reviewed the physical assessment, medical history, allergy history and patient home medications list prior to surgery/procedure/anesthetic and documented any changes. Performed airway and anesthesia risk assessments. Anesthesia Type Anesthesia Type: General History Source History Obtained from:: Patient and Chart Anesthesia Focused Assessment* Temperature: 98.5 F Pulse Rate: 78 Blood Pressure: 110/70 Respiratory Rate: 16 Pulse Ox: 100 Oxygen Delivery Method: Room Air Airway Assessment Mouth opens: >3 cm Mallampati Score: I Teeth Condition: Missing (Patient has a couple missing teeth bilaterally lower jaw.) Neck Range of motion (ROM): Full ROM Labs Anesthesia Preop lab: CBC WBC, (4.4-11.0) 6.1 K/mm3 01/19/25, 14:43 RBC, (4.2-5.4) 4.19 M/mm3 L 01/19/25, 14:43 Hgb, (12.0-15.0) 12.4 g/dL 01/19/25, :43 Hct, (37-47) 37.1 % 01/19/25, :43 Plt Count, (150-450) 287 K/mm3 01/19/25, 14:43 CHEMISTRY Potassium, (3.3-5.1) 3.9 mmol/L 07/07/24, 14:04 Sodium, (133-145) 140 mmol/L 07/07/24, 14:04 BUN, (4-19) 10 mg/dL 07/07/24, 14:04 Creatinine, (0.70-1.20) 0.69 mg/dL L 07/07/24, 14:04 Glucose, (70-99) 88 mg/dL 07/07/24, 14:04 TSH, (0.300-4.200) 1.430 uIU/mL 07/07/24, 14:04 COAG Urine Test Negative Negative Today, 06:25 Pre-Assessment Diagnosis/Proposed Procedure Planned Operative Procedure(s): MYOMECTOMY, LAPAROTOMY Anesthesia History 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 When Was Last Pacemaker Check QUESTION #4 FULL TEXT: You/Your Family Experience fever (hyperthermia) with Anesthesia Last Oral Intake Last Oral intake: Last Oral Intake NPO since 04:30 01/24/25 06:45 Meds taken in AM with sips of No 01/24/25 06:45 water? Meds patient instructed to take am of surgery Any additional information?: Yes NPO since: 04:30 (Patient took her preop Ensure at 4:30 AM.) Meds taken in AM with sips of water?: No PONV PONV - bolting machine operator: PONV - bolting machine operator Female Yes 01/19/25 08:43 HX of Motion Sickness No 01/19/25 08:43 HX of N/V After Surgery No 01/19/25 08:43 Non-Smoker Yes 01/19/25 08:43 Duration of Surgery greater Yes 01/19/25 08:43 than 60 minutes Number of Risk Factors 3 01/19/25 08:43 PONV Score Moderate Risk 01/19/25 08:43 Height & Weight Height & Weight: Anesthesia: Height & Weight Height 5 ft 3 in 01/24/25 06:45 Weight: 59 kg 01/24/25 06:45 Body Mass Index (BMI) 23.0 01/24/25 06:45 Respiratory Assessment Respiratory Assessment - bolting machine operator: Respiratory Tract Infection Hx - bolting machine operator Hx Respiratory Tract Infection No 01/19/25 08:43 STOP Sleep Apnea STOP Sleep Apnea - bolting machine operator: STOP Sleep Apnea - bolting machine operator Hx Hypertension No 01/19/25 08:43 Hx Sleep Apnea No 01/19/25 08:43 CPAP BIPAP Do you snore loudly (louder No 01/19/25 08:43 than talking or can be heard Do you often feel tired/ No 01/19/25 08:43 fatigued/ sleepy during daytime? Has anyone observed you stop No 01/19/25 08:43 breathing during sleep? STOP Results Negative 01/19/25 08:43 QUESTION #5 FULL TEXT : Do you snore loudly (louder than talking or can be heard through closed doors)? 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 Specify any problems Hx of Preganancy in last 3 No 01/19/25 08:43 Months Nurse Filling Out Transfusion [id number] 01/19/25 08:43 & Questions: Date: 01/19/25 01/19/25 08:43 Time: 08:46 01/19/25 08:43 Patient unable to answer at this time (ie. confused, unrespo /Reproduction History /Reproductive History - bolting machine operator: /Reproductive Hx- bolting machine operator Hx Now No 01/19/25 08:43 Gestational Age (in weeks): EDC: Hx Hx Para Hx Section SAB No 01/19/25 08:43 Active Medications Active Medications: Current Medications Generic Name Dose Route Start Last Admin Trade Name Freq PRN Reason Stop Dose Admin Cefotetan Disodium 2 gm/ 100 mls @ 200 mls/hr 01/24/25 07:30 Sodium Chloride IV 01/24/25 07:59 INTRAOP ONE Lactated Ringer's 1,000 mls @ 15 mls/hr 01/24/25 06:30 01/24/25 06:45 IV 15 mls/hr .Q48H CHRISTIE Administration PFSH Medical History Blackout Heart murmur Home Medications ?Medication ?Instructions ?Recorded ?Last Taken ?Type BLACK PEPPER- TUMERIC 2 cap PO BID SUPPLEMENT 01/19/25 01/17/25 History ferrous sulfate 325 mg (65 mg 325 mg PO BID SUPPLEMENT 01/19/25 01/21/25 History iron) tablet (Feosol) omega 8-own-rte-fish oil 1,200 mg 2 cap PO DAILY SUPPLEMENT 01/19/25 01/17/25 History (144 mg-216 mg) capsule (Fish Oil) Allergy/AdvReac Type Severity Reaction Status Date / Time No Known Allergies Allergy Verified 01/24/25 06:46 Family History Grandfather Colon cancer Grandmother Cancer Father Diabetes Surgical History H/O wisdom tooth extraction Social History household members: spouse housing: house current occupational status: employed current occupation: [employer] Smoking Status: Never smoker alcohol intake: never substance use type: does not use frequency: does not exercise seatbelt use: always additional social history: [place] Review of Systems (Anesthesia) ROS Narrative System reviewed and no additional complaints, except as documented.
[2025-01-24] MEDS: Midazolam 2 MG/2 ML Syringe IV (07:25)
[2025-01-24] MEDS: fentaNYL 100 MCG/2 ML Ampul 150 MCG IV (07:30)
--- NOTE | 2025-01-24 07:30 | UTER_PTH ---
PATIENT: MELISSA REINOSO LOC: MS3 U#:[id number] AGE/SX: 24/F ROOM: WA311 RE01/24/[address]: Dr. Kayce Alvarez MD : 2000 BED: 1 DIS: 01/25/2025 SPEC #: [id number] RECD: 01/24/25 09:35 STATUS: SANAZ REQ #: [id number] JUDE: 01/24/25 07:[address]: Kayce Alvarez DEPT: SURGICAL PATHOLOGY RECD BY: Leighton Garcia ENTERED: 01/24/25 10:34 SP TYPE: UTERINE CO OTHR DR: Dr. Margret Jenkins MD Tissues: A - Fibrous tissue Procedures: Surgery Specimen Level IV HEADER OPERATION: Laparotomy, myomectomy PRE-OP DIAGNOSIS: Abnormal uterine bleeding, irregular menses, uterine fibroid TISSUE SUBMITTED: A- Myoma MICROSCOPIC DIAGNOSIS A. Soft tissue, myomectomy: * Leiomyoma MICROSCOPIC DESCRIPTION Slides are reviewed. GROSS DESCRIPTION A. Received in formalin labeled with the patient's name and date of . Designated as myoma is a 138.3 g, 7 x 6.9 x 4.5 cm maria-pink, intact, lobulated leiomyoma with a focally cauterized, apparent resection margin. The apparent resection margin is inked orange and the remainder of the specimen is inked green. Sectioning reveals maria-pink to white, firm, whorled, nodular cut surfaces devoid of grossly identifiable necrosis. Clinical Trials Assistant sections are submitted in 5 cassettes. MT 01/24/2025 CPT:50198
[2025-01-24] MEDS: BUPIVACAINE LIPOSOME/PF 20 ML VIAL OPERA.SITE (08:30)
[2025-01-24] MEDS: Lactated Ringers 2,000 ML 2000 ML IV (08:35)
--- NOTE | 2025-01-24 09:20 | PCM.POST.ANE ---
Anesthesia: Postop Eval I Current Vital Signs Temperature: 97.1 F Pulse Rate: 87 Blood Pressure: 110/65 Respiratory Rate: 20 Pulse Ox: 100 Oxygen Delivery Method: Room Air Assessment Airway patent: Yes Spontaneous unlabored respirations: Yes Mental status: Asleep nausea: No Vomiting: No Anesthesia Complication: No Fluid Hydration Crystalloid volume administer (ml): 1,400 Total IV fluid infused: 1,400 Progress Note Anesthesia document: Postop Eval 1 completed: Yes
--- NOTE | 2025-01-24 09:27 | OP.PCM_ITS ---
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 [employer] Tasks completed by digital marketing assistant: Opening & closing and Retracting Type of Anesthesia: General and Local (TAP block) RN Documented Start/Stop Times: Operation Date: 01/24/25 07:30 Case Time Into Pre-Op 01/24/25 06:23 Out of Pre-Op 01/24/25 07:18 Anesthesia Start 01/24/25 07:25 Into Room 01/24/25 07:25 Procedure Start 01/24/25 07:53 Into Recovery 01/24/25 09:16 Procedure Start Time: 07:53 Procedure Stop Time: 09:10 Select all DRAINS/GRAFTS/IMPLANTS that apply: None (valerio) Estimated Blood Loss: 50 Specimen collected: Yes Description of specimen(s) removed: fibroid Description of surgery: The patient was taken to the operating room and placed under general anesthesia in the dorsal supine position. She was prepped and draped in the normal sterile fashion. Valerio catheter was placed in the bladder SCDs were on and preoperative antibiotics were given. A Pfannenstiel skin incision was made with the scalpel and carried through the underlying layer of the fascia with the scalpel, fascia was nicked in the midline, incision extended laterally. Rectus bellies were dissected off superiorly and inferiorly sharply and bluntly and peritoneum entered digitally, incision stretched laterally and the retractor was placed after the bowel was packed away. The uterus was identified and noted to be significantly enlarged approximately 14 weeks size.The fibroid was then identified, elevated, and injected with dilute vasopressin along the serosa and into the myometrium to reduce blood loss and dissected the planes. Incision was made across the base of the pedunculated fibroid across the serosa anteriorly and posteriorly. The myometrium was not significantly entered. 1 running layer of 3-0 Monocryl was used to oversew the myometrium and then the serosa was closed using 4-0 Monocryl in a baseball stitch. Hemoblast placed over the area and pressure applied excellent hemostasis noted. A layer of Interceed was placed over the area to reduce the risk of adhesions in the future. All laps and instruments were removed from the abdomen and the peritoneum was closed with 3-0 Monocryl, TAP block injected into the fascia and rectus muscles using exparel and bupivicaine, and then the fascia closed with 0 PDS. subcutaneous tissue irrigated and reapproximated with 3-0 Monocryl and the skin closed with 4-0 Monocryl. Patient was awoken and taken recovery in stable condition. Surgical Findings: pedunculated fibroid off fundus left side top of uterus Complications Complications: No
--- NOTE | 2025-01-24 09:39 | DCINST_ITS ---
Discharge Instructions DC O2, CPAP, BIPAP needs Home O2 Discharge instructions: No Dressing / Incision Discharge Activity: May Not Drive (for 2 weeks or while taking narcotic pain medications.), May Shower and May Take a Tub Bath (in 7 days) May shower in (days): 0 May resume sexual activity in: 4-6 weeks Weight Bearing Status: Full weight bearing Lifting Restrictions: 20 pounds Dressing / Incision Call your doctor if your incision/area has: Continuous Slow Oozing, Sudden Increased Bleeding, Increased Pain/ Swelling, Increased Redness and Foul Smelling Discharge Call your doctor if you observe: Fever of 101 or Higher and Using more than 1 pad per hour (for 2 hours) Suture Line Care: Avoid Pulling/Pushing and Avoid Pinching/Bending Cleanse incision/area with: Soap & Water and Keep Dressing Clean & Dry Follow Up Care Please Follow Up With: Kayce Alvarez MD When: Call [phone] to make an appointment for an incision check in 1-2 weeks. Test Results: Test results from this visit will be discussed in further detail at your follow- up appointment, if applicable. Discharge Plan Admission Admit Date/Time: 01/24/25 06:18 Attending Provider: Kayce Alvarez Primary Care Provider: Margret Jenkins Discharge Orders/Prescriptions Prescriptions: No Action ferrous sulfate [Feosol] 325 mg (65 mg iron) tablet 325 mg PO BID omega 9-elj-dez-fish oil [Fish Oil] 1,200 (144-216) mg capsule 2 cap PO DAILY BLACK PEPPER- TUMERIC 2 cap PO BID Patient Comments: * PT MIXES AND PUTS IN CAPSULES* Referrals / Follow Up: Margret Jenkins MD [Primary Care Provider, Internal Medicine]
[2025-01-24] MEDS: Lactated Ringers 1,000 ML 70 ML IV (10:59)
[2025-01-24] MEDS: 0.9% Saline Lock 10 ML Syringe IV ×2 (11:04→14:36)
--- OUTSIDE RECORDS SUMMARY | 2025-01-24 11:04 | XMS RPT_ITS | CCD ---
Author Organization [facility] Care Team Providers Care Wooden Boat Builder Name Role Phone Gregory MCINTOSH, Dr. Oswald Primary Care Provider Gregory MCINTOSH, Dr. Oswald Referring Provider [phone] Bebo PLUG STITCHER-CRasheeda Attending Provider [phone] Bebo PLUG STITCHERNikosCRasheeda Referring Provider Gregory MCINTOSH, Dr. Oswald Primary Care Provider Bebo PLUG STITCHER-Rasheeda Duran Attending Provider Rasheeda Crews Referring Provider Dr. Margret Jenkins MD Primary Care Physician Rasheeda Crews Attending Physician Dr. Margret Jeknins MD Referring Provider [phone] Antonio MCINTOSH, [...] (4 sources) Start: 05-04-2019 Start: 05-04-2019 Multivitamin,T j-Mtog-Kmeixdto (Complete Multivitamin) tablet Active 1 {tbl} PO DAILY May 04, 2019 1:00am Complies with drug therapy Start: 05-04-2019 Multivitamin,T z-Imzn-Hqxwpgyn (Complete Multivitamin) tablet Active 1 {tbl} PO [...] Absolute Lymph 2.45 X10 3/uL Normal 0.83-4.51 [facility] Comment on above: Performed By: #### B TSPAT, L100.0100 #### [facility] [address] [place], [address] Absolute Neut 3.2 X10 3/uL Normal 2.0-7.7 [facility] Comment on above: Performed By: #### B TSPAT, L100.0100 #### [facility] [address] [place], [address] Basophils/100 WBC (Bld) 0.5 % Normal 0-1 [facility] Comment on above: Performed By: #### B TSPAT, L100.0100 #### [facility] [address] [place], [address] Eosinophils/100 WBC (Bld) 0.8 % Normal 0-5 [facility] Comment on above: Performed By: #### B TSPAT, L100.0100 #### [facility] [address] [place], [address] Erythrocyte distribution width (RBC) [Ratio] 12.5 % Normal 11.6-14.6 [facility] Comment on above: Performed By: #### B TSPAT, L100.0100 #### [facility] [address] [place], [address] Hematocrit (Bld) [Volume fraction] 37.1 % Normal 37-47 [facility] Comment on above: Performed By: #### B TSPAT, L100.0100 #### [facility] [address] [place], [address] Hemoglobin (Bld) [Mass/Vol] 12.4 g/dL Normal 12.0-15.0 [facility] Comment on above: Performed By: #### B TSPAT, L100.0100 #### [facility] [address] [place], [address] IG% 0.200 Normal 0.0-0.9 [facility] Comment on above: Result Comment: IG% - Immature Granulocytes (promyelocytes, myelocytes and metamyelocytes) > 1% indicates that a LEFT SHIFT is Present. Performed By: #### B TSPAT, L100.0100 #### [facility] [address] [place], [address] Lymphocytes/100 WBC (Bld) 39.9 % Normal 19-41 [facility] Comment on above: Performed By: #### B TSPAT, L100.0100 #### [facility] [address] [place], [address] MCH (RBC) [Entitic mass] 29.6 pg Normal 27.0-32.0 [facility] Comment on above: Performed By: #### B TSPAT, L100.0100 #### [facility] [address] [place], [address] MCHC (RBC) [Mass/Vol] 33.4 g/dL Normal 32-36 [facility] Comment on above: Performed By: #### B TSPAT, L100.0100 #### [facility] [address] [place], [address] MCV (RBC) [Entitic vol] 88.5 fL Normal 81-99 [facility] Comment on above: Performed By: #### B TSPAT, L100.0100 #### [facility] [address] [place], [address] Monocytes/100 WBC (Bld) 6.2 % Normal 0-10 [facility] Comment on above: Performed By: #### Lance TSPAT, L100.0100 #### [facility] [address] [place], [address] Neutrophils/100 WBC (Bld) 52.4 % Normal 47-70 [facility] Comment on above: Performed By: #### B TSPAT, L100.0100 #### [facility] [address] [place], [address] Nucleated RBC (Bld) [#/Vol] 0 10*3/uL Normal 0-5 [facility] Comment on above: Performed By: #### B TSPAT, L100.0100 #### [facility] [address] [place], [address] Platelet mean volume (Bld) [Entitic vol] 10.2 fL Normal 6.2-12.0 [facility] Comment on above: Performed By: #### B TSPAT, L100.0100 #### [facility] [address] [place], [address] Platelets (Bld) [#/Vol] 287 10*3/uL Normal 150-450 [facility] Comment on above: Performed By: #### B TSPAT, L100.0100 #### [facility] [address] [place], [address] RBC (Bld) [#/Vol] 4.19 10*6/uL Low 4.2-5.4 [facility] Comment on above: Performed By: #### B TSPAT, L100.0100 #### [facility] [address] [place], [address] RDW SD 40.7 fl Normal 35.1-43.9 [facility] Comment on above: Performed By: #### B TSPAT, L100.0100 #### [facility] [address] [place], [address] WBC (Bld) [#/Vol] 6.1 10*3/uL Normal 4.4-11.0 [facility] Comment on above: Performed By: #### Lance TSPAT, L100.0100 #### [facility] [address] [place], [address] Type AND Screen - PAT ONLYon 01-19-2025 Ab SCREEN GEL Negative Normal [facility] Comment on above: Order Comment: Surge ry Date: 01/24/25Reason for Laboratory Test [id number] Performed By: #### Lance TSPAT, L100.0100 ####[facility] [address] [place], [address] Director Software Development Office Visit Reporton 01-05-2025 Director Software Development Office Visit Report [facility] [address], [address] [place] [address] OFFICE VISIT Date of Service: 01/05/25 MR#: [id number] Acct: [id number] Name: MELISSA REINOSO Marquis Rep #: [id number] : 2000 Provider: Dr. Kayce bains MD Age/Sex: 24/F Location: [facility] Status: Signed Intake Vital Signs 12/22/24 14:35 01/05/25 08:48 Height 5 ft 3 in 5 ft 3 in Weight: 134 lb 1 oz 130 lb 5 oz BMI 23.7 23.1 BP 116/69 108/72 Intake Visit Reasons: abdominal myomectomy Sales Relationship Manager Required: No Is patient in pain?: No [...] house current occupational status: employed current occupation: [employer] Smoking Status: Never smoker alcohol intake: [...] comfortable and no acute distress Orientation: alert [facility] Head: normal to inspection and normocephalic [...] no deficits, (more content not included)... Normal [facility] Director Software Development Office Visit Reporton 12-22-2024 Director Software Development Office Visit Report [facility] [address], [address] [place] [address] OFFICE VISIT Date of Service: 12/22/24 MR#: [id number] Acct: [id number] Name: MELISSA REINOSO Rep #: [id number] : 2000 Provider: Dr. Kyace bains MD Age/Sex: 24/F Location: [facility] Status: Signed Intake Vital Signs 07/07/24 13:37 12/22/24 14:33 12/22/24 14:35 Height 5 ft 3 in 5 ft 3 in 5 ft 3 in Weight: 138 lb 134 lb 1 oz 134 lb 1 oz BMI 24.4 23.7 23.7 BP 121/79 H 116/69 116/69 Intake Visit Reasons: SURGICAL CONSULT Sales Relationship Manager Required: No Is patient in pain?: No [...] use: always additional social history: Works at [employer] Details: MELISSA REINOSO is a 24 year old who presents for heavy irregular mensesa dn lower pelvic pain, enlarged uterus with fibroid. she is wanting to conceive eventually. she saw the PLUG STITCHER and was diagnose with a uterine fibroid. [...] comfortable and no acute distress Orientation: alert [facility] Head: normal to inspection and normocephalic [...] menses: Status: (more content not included)... Normal [facility] Pelvic w/ Transvaginalon 09- 06-2025 Pelvic w/ Transvaginal [facility] [address] [place], [place] [address] Pelvic w/ Transvaginal MR#: [id number] Acct: [id number] Name: MELISSA REINOSO Rep #: [id number] : 2000 24 From: Ambrose britton MD PCP: Dr. Margret Jenkins MD Status: REG CLI Study: Pelvic w/ Transvaginal Date of Exam: 12/10/24 Exam# [id number] Ordering Dr: Rasheeda Lagunas PLUG STITCHER-C PROCEDURE: PELVIC W/ TRANSVAGINAL REASON FOR EXAM: [...] cm 5.6 cm fundal fibroid. Reading Location: [facility] CC: YAMILET Lagunas; Dr. Margret Jenkins MD Stave Bolt Equalizer: Signed Normal [facility] PAP I-G w/rfx hrHPV-Aptimaon 07-12-2024 ADEQ Comment Normal . [facility] Comment on above: Order Comment: Speci men Comment: [id number] Comment: Source.............Cervix;EndocervixSpecimen Comment: No. of containers..01 ThinPrep Vial Result Comment: Sati sfactory for evaluation. No endocervical component is identified. Performed By: #### L 7400.0353 ####[facility] [address] [facility] [place], [address] COMM . Normal . [facility] Comment on above: Order Comment: Speci men Comment: [id number] Comment: Source.............Cervix;EndocervixSpecimen Comment: No. of containers..01 ThinPrep Vial Performed By: #### L 7400.0353 ####[facility] [address] [facility] [place], [address] COMMENT Comment Normal . [facility] Comment on above: Order Comment: Speci men Comment: [id number] Comment: Source.............Cervix;EndocervixSpecimen Comment: No. of containers..01 ThinPrep Vial Result Comment: This liquid based ThinPrep(R) pap test was screened with the use of an image guided system. Performed By: #### L 7400.0353 ####[facility] [address] [facility] [place], [address] DIAG Comment Normal . [facility] Comment on above: Order Comment: Speci men Comment: [id number] Comment: Source.............Cervix;EndocervixSpecimen Comment: No. of containers..01 ThinPrep Vial Result Comment: NEGA TIVE FOR INTRAEPITHELIAL LESION OR MALIGNANCY. Performed By: #### L 7400.0353 ####[facility] [address] [place], [place], [address] HPV RFLX Comment Normal . [facility] Comment on above: Order Comment: Speci men Comment: [id number] Comment: Source.............Cervix;EndocervixSpecimen Comment: No. of containers..01 ThinPrep Vial Result Comment: The HPV DNA reflex criteria were not met with this specimen result therefore, no HPV testing was performed. Performed at: [facility] [employer] [address] [place] [id number] Messenger Office: Sage Booth MD, Phone: [phone] Performed at: - [address] [id number] [place] Office: Brooklynn Bautista MD, Phone: [phone] Performed By: #### L 7400.0353 ####[facility] [address] [place], [place], [id number] PAPSMR Comment Normal . [facility] Comment on above: Order Comment: Speci men Comment: [id number] Comment: Source.............Cervix;EndocervixSpecimen Comment: No. of containers..01 ThinPrep Vial Result Comment: The Pap smear is a screening test designed to aid in the detection of premalignant and malignant conditions of the uterine cervix. It is not a diagnostic procedure and should not be used as the sole means of detecting cervical cancer. Both false-positive and false-negative reports do occur. Performed By: #### L 7400.0353 ####[facility] [address] [place], [place], [id number] PERFORM Comment Normal . [facility] Comment on above: Order Comment: Speci men Comment: [id number] Comment: Source.............Cervix;EndocervixSpecimen Comment: No. of containers..01 ThinPrep Vial Result Comment: Monica Segal, Fruit Dryer (ASCP) Performed By: #### L 7400.0353 ####[facility] [address] [place], [place], [id number] Absolute neutrophil countOrd ered By: Rasheeda Lagunas on 07-07-2024 Neutrophils (Bld) [#/Vol] 4.4 10*3/uL 2.0-7.7 [facility] Anion gap in Serum or Plasma Ordered By: Rasheeda Lagunas on 07-07-2024 Anion gap [Moles/Vol] 13 mmol/L 5-15 [facility] BUN/creatinine ratioOrdered By: Rasheeda Lagunas on 07-07-2024 Urea nitrogen/Creatinine [Mass ratio] 14.9 mg/mg 10-20 [facility] Basophil percentageOrdered B y: Rasheeda Lagunas on 07-07-2024 Basophils/100 WBC (Bld) 0.3 % 0-1 [facility] Bilirubin, totalOrdered By: Rasheeda Lagunas on 07-07-2024 Bilirubin [Mass/Vol] 0.25 mg/dL 0.00-1.30 [facility] CBC W/Diff, Automatedon Absolute Lymph 1.97 X10 3/uL Normal 0.83-4.51 [facility] Comment on above: Performed By: #### L 506.1001, L500.4050, L100.0100, L506.0400, L501.9520 #### [facility] [address] [place], [place], [address] Absolute Neut 4.4 X10 3/uL Normal 2.0-7.7 [facility] Comment on above: Performed By: #### L 506.1001, L500.4050, L100.0100, L506.0400, L501.9520 #### [facility] [address] [place], [address] Basophils/100 WBC (Bld) 0.3 % Normal 0-1 [facility] Comment on above: Performed By: #### L 506.1001, L500.4050, L100.0100, L506.0400, L501.9520 #### [facility] [address] [place], [address] Eosinophils/100 WBC (Bld) 0.7 % Normal 0-5 [facility] Comment on above: Performed By: #### L 506.1001, L500.4050, L100.0100, L506.0400, L501.9520 #### [facility] [address] [place], [address] Erythrocyte distribution width (RBC) [Ratio] 13.2 % Normal 11.6-14.6 [facility] Comment on above: Performed By: #### L 506.1001, L500.4050, L100.0100, L506.0400, L501.9520 #### [facility] [address] [place], [address] Hematocrit (Bld) [Volume fraction] 37.7 % Normal 37-47 [facility] Comment on above: Performed By: #### L 506.1001, L500.4050, L100.0100, L506.0400, L501.9520 #### [facility] [address] [place], [address] Hemoglobin (Bld) [Mass/Vol] 12.6 g/dL Normal 12.0-15.0 [facility] Comment on above: Performed By: #### L 506.1001, L500.4050, L100.0100, L506.0400, L501.9520 #### [facility] [address] [place], [address] IG% 0.400 Normal 0.0-0.9 [facility] Comment on above: Result Comment: IG% - Immature Granulocytes (promyelocytes, myelocytes and metamyelocytes) > 1% indicates that a LEFT SHIFT is Present. Performed By: #### L 506.1001, L500.4050, L100.0100, L506.0400, L501.9520 #### [facility] [address] [place], [address] Lymphocytes/100 WBC (Bld) 28.3 % Normal 19-41 [facility] Comment on above: Performed By: #### L 506.1001, L500.4050, L100.0100, L506.0400, L501.9520 #### [facility] [address] [place], [address] MCH (RBC) [Entitic mass] 29.4 pg Normal 27.0-32.0 [facility] Comment on above: Performed By: #### L 506.1001, L500.4050, L100.0100, L506.0400, L501.9520 #### [facility] [address] [place], [address] MCHC (RBC) [Mass/Vol] 33.4 g/dL Normal 32-36 [facility] Comment on above: Performed By: #### L 506.1001, L500.4050, L100.0100, L506.0400, L501.9520 #### [facility] [address] [place], [address] MCV (RBC) [Entitic vol] 87.9 fL Normal 81-99 [facility] Comment on above: Performed By: #### L 506.1001, L500.4050, L100.0100, L506.0400, L501.9520 #### [facility] [address] [place], [address] Monocytes/100 WBC (Bld) 6.7 % Normal 0-10 [facility] Comment on above: Performed By: #### L 506.1001, L500.4050, L100.0100, L506.0400, L501.9520 #### [facility] [address] [place], [address] Neutrophils/100 WBC (Bld) 63.6 % Normal 47-70 [facility] Comment on above: Performed By: #### L 506.1001, L500.4050, L100.0100, L506.0400, L501.9520 #### [facility] [address] [place], [address] Nucleated RBC (Bld) [#/Vol] 0 10*3/uL Normal 0-5 [facility] Comment on above: Performed By: #### L 506.1001, L500.4050, L100.0100, L506.0400, L501.9520 #### [facility] [address] [place], [address] Platelet mean volume (Bld) [Entitic vol] 10.3 fL Normal 6.2-12.0 [facility] Comment on above: Performed By: #### L 506.1001, L500.4050, L100.0100, L506.0400, L501.9520 #### [facility] [address] [place], [address] Platelets (Bld) [#/Vol] 268 10*3/uL Normal 150-450 [facility] Comment on above: Performed By: #### L 506.1001, L500.4050, L100.0100, L506.0400, L501.9520 #### [facility] [address] [place], [address] RBC (Bld) [#/Vol] 4.29 10*6/uL Normal 4.2-5.4 [facility] Comment on above: Performed By: #### L 506.1001, L500.4050, L100.0100, L506.0400, L501.9520 #### [facility] [address] [place], [address] RDW SD 42.4 fl Normal 35.1-43.9 [facility] Comment on above: Performed By: #### L 506.1001, L500.4050, L100.0100, L506.0400, L501.9520 #### [facility] [address] [place], [address] WBC (Bld) [#/Vol] 7.0 10*3/uL Normal 4.4-11.0 [facility] Comment on above: Performed By: #### L 506.1001, L500.4050, L100.0100, L506.0400, L501.9520 #### [facility] [address] [place], [address] Carbon dioxide, total [Moles /volume] in Central venous bloodOrdered By: Rasheead Lagunas on 07-07-2024 CO2 [Moles/Vol] 25.2 mmol/L 21.0-32.0 [facility] Chloride assayOrdered By: Kelly Lagunas on 07-07-2024 Chloride [Moles/Vol] 102 mmol/L 98-108 [facility] Comprehensive Metabolic Prof ilon 07-07-2024 Albumin [Mass/Vol] 4.9 g/dL Normal 3.5-5.0 [facility] Comment on above: Performed By: #### L 506.1001, L500.4050, L100.0100, L506.0400, L501.9520 #### [facility] [address] [place], [address] Albumin/Globulin [Mass ratio] 1.9 {ratio} Normal 0.9-2.4 [facility] Comment on above: Performed By: #### L 506.1001, L500.4050, L100.0100, L506.0400, L501.9520 #### [facility] [address] [place], [address] ALK PHOS 39 U/L Normal 35-104 [facility] Comment on above: Performed By: #### L 506.1001, L500.4050, L100.0100, L506.0400, L501.9520 #### [facility] [address] [place], [address] ALT [Catalytic activity/Vol] 23 U/L Normal <=34 [facility] Comment on above: Performed By: #### L 506.1001, L500.4050, L100.0100, L506.0400, L501.9520 #### [facility] [address] [place], [address] AST [Catalytic activity/Vol] 28 U/L Normal <=31 [facility] Comment on above: Performed By: #### L 506.1001, L500.4050, L100.0100, L506.0400, L501.9520 #### [facility] [address] [place], [address] Bilirubin [Mass/Vol] 0.25 mg/dL Normal 0.00-1.30 [facility] Comment on above: Performed By: #### L 506.1001, L500.4050, L100.0100, L506.0400, L501.9520 #### [facility] [address] [place], [address] BUN/CRE 14.9 RATIO Normal 10-20 [facility] Comment on above: Performed By: #### L 506.1001, L500.4050, L100.0100, L506.0400, L501.9520 #### [facility] [address] [place], [address] Calcium [Mass/Vol] 9.7 mg/dL Normal 7.6-11.0 [facility] Comment on above: Performed By: #### L 506.1001, L500.4050, L100.0100, L506.0400, L501.9520 #### [facility] [address] [place], [address] Chloride [Moles/Vol] 102 mmol/L Normal 98-108 [facility] Comment on above: Performed By: #### L 506.1001, L500.4050, L100.0100, L506.0400, L501.9520 #### [facility] [address] [place], [address] CO2 [Moles/Vol] 25.2 mmol/L Normal 21.0-32.0 [facility] Comment on above: Performed By: #### L 506.1001, L500.4050, L100.0100, L506.0400, L501.9520 #### [facility] [address] [place], [address] Creatinine [Mass/Vol] 0.69 mg/dL Low 0.70-1.20 [facility] Comment on above: Performed By: #### L 506.1001, L500.4050, L100.0100, L506.0400, L501.9520 #### [facility] [address] [place], [address] GAP 13 Normal 5-15 [facility] Comment on above: Performed By: #### L 506.1001, L500.4050, L100.0100, L506.0400, L501.9520 #### [facility] [address] [place], [address] GFR/1.73 sq M.predicted among non-blacks MDRD (S/P/Bld) [Vol rate/Area] 124 mL/min/{1.73_m2} Normal >60 [facility] Comment on above: Result Comment: mL/m in/1.73m2 CKD-EPI Creatinine Equation (2020) Performed By: #### L 506.1001, L500.4050, L100.0100, L506.0400, L501.9520 #### [facility] [address] [place], [address] Globulin (S) [Mass/Vol] 2.5 g/dL Normal 2.2-4.2 [facility] Comment on above: Performed By: #### L 506.1001, L500.4050, L100.0100, L506.0400, L501.9520 #### [facility] [address] [place], [address] Glucose [Mass/Vol] 88 mg/dL Normal 70-99 [facility] Comment on above: Performed By: #### L 506.1001, L500.4050, L100.0100, L506.0400, L501.9520 #### [facility] [address] [place], [address] Potassium [Moles/Vol] 3.9 mmol/L Normal 3.3-5.1 [facility] Comment on above: Performed By: #### L 506.1001, L500.4050, L100.0100, L506.0400, L501.9520 #### [facility] [address] [place], [address] Sodium [Moles/Vol] 140 mmol/L Normal 133-145 [facility] Comment on above: Performed By: #### L 506.1001, L500.4050, L100.0100, L506.0400, L501.9520 #### [facility] [address] [place], [address] T PROT 7.4 g/dL Normal 5.9-8.4 [facility] Comment on above: Performed By: #### L 506.1001, L500.4050, L100.0100, L506.0400, L501.9520 #### [facility] [address] [place], [address] Urea nitrogen [Mass/Vol] 10 mg/dL Normal 4-19 [facility] Comment on above: Performed By: #### L 506.1001, L500.4050, L100.0100, L506.0400, L501.9520 #### [facility] [address] [place], [address] Eosinophil percentageOrdered By: Rasheeda Lagunas on 07-07-2024 Eosinophils/100 WBC (Bld) 0.7 % 0-5 [facility] Erythrocyte distribution wid th (RBC) [Ratio]Ordered By: Rasheeda Lagunas on 07-07-2024 Erythrocyte distribution width (RBC) [Entitic vol] 42.4 fL 35.1-43.9 [facility] Erythrocyte distribution wid th ratioOrdered By: Rasheeda Lagunas on 07-07-2024 Erythrocyte distribution width (RBC) [Ratio] 13.2 % 11.6-14.6 [facility] GFR/1.73 sq M.predicted emily g non-blacks MDRD (S/P/Bld) [Vol rate/Area]Ordered By: Rasheeda Lagunas on 07-07-2024 Estimated GFR (MDRD) Non-Af Amer 124 >60 [facility] Comment on above: mL/min/1.73m2 CKD-EP I Creatinine Equation (2020) Hematocrit Auto (Bld) [Volum e fraction]Ordered By: Rasheeda Lagunas on 07-07-2024 Hematocrit (Bld) [Volume fraction] 37.7 % 37-47 [facility] Hemoglobin measurementOrdere d By: Rasheeda Lagunas on 07-07-2024 Hemoglobin (Bld) [Mass/Vol] 12.6 g/dL 12.0-15.0 [facility] Immature granulocytes/100 WB C Auto (Bld)Ordered By: Rasheeda Lagunas on 07-07-2024 Immature granulocytes/100 WBC (Bld) 0.400 % 0.0-0.9 [facility] Comment on above: IG% - Immature Granu locytes (promyelocytes, myelocytes and metamyelocytes) > 1% indicates that a LEFT SHIFT is Present. Laboratory - Chemistry and C hemistry - challengeOrdered By: Rasheeda Lagunas on 07-07-2024 AST [Catalytic activity/Vol] 28 U/L <32 [facility] Lymphocytes Auto (Unsp spec) [#/Vol]Ordered By: Rasheeda Lagunas on 07-07-2024 Lymphocytes (Bld) [#/Vol] 1.97 10*3/uL 0.83-4.51 [facility] Lymphocytes/100 WBC Auto (Un sp spec)Ordered By: Rasheeda Lagunas on 07-07-2024 Lymphocytes/100 WBC (Bld) 28.3 % 19-41 [facility] MCV (mean corpuscular volume ) determinationOrdered By: Rasheeda Lagunas on 07-07-2024 MCV (RBC) [Entitic vol] 87.9 fL 81-99 [facility] Mean corpuscular hemoglobin (MCH) determinationOrdered By: Rasheeda Lagunas on 07-07-2024 MCH (RBC) [Entitic mass] 29.4 pg 27.0-32.0 [facility] Mean corpuscular hemoglobin concentration (MCHC) determinationOrdered By: Rasheeda Lagunas on 07-07-2024 MCHC (RBC) [Mass/Vol] 33.4 g/dL 32-36 [facility] Mean platelet volume determi nationOrdered By: Rasheeda Lagunas on 07-07-2024 Platelet mean volume (Bld) [Entitic vol] 10.3 fL 6.2-12.0 [facility] Monocyte percentageOrdered B y: Rasheeda Lagunas on 07-07-2024 Monocytes/100 WBC (Bld) 6.7 % 0-10 [facility] Neutrophil percentageOrdered By: Rasheeda Lagunas on 07-07-2024 Neutrophils/100 WBC (Bld) 63.6 % 47-70 [facility] Nucleated red blood cell per centageOrdered By: Rasheeda Lagunas on 07-07-2024 Nucleated RBC/100 WBC (Bld) [Ratio] 0 % 0-5 [facility] Director Software Development Office Visit Reporton 07-07-2024 Director Software Development Office Visit Report [facility] [address], [address] [place] [address] OFFICE VISIT Date of Service: 07/07/24 MR#: [id number] Acct: [id number] Name: MELISSA REINOSO Rep #: [id number] : 2000 Provider: YAMILET Tate Age/Sex: 24/F Location: [facility] Status: Signed Intake Vital Signs 08/30/21 14:40 07/07/24 13:37 Height 5 ft 3 in 5 ft 3 in Weight: 138 lb BMI 24.4 BP 121/79 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 Is patient in pain?: No Allergies No Known Allergies Allergy (Verified 07/07/24 13:35) Medications ???Medication ???Instructions ???Recorded ???Confirmed ???Type multivitamin,tx-iron-m inerals 1 tab PO DAILY 05/04/19 07/07/24 H istory (Complete Multivitamin tablet) Is last menstrual period known: Yes Last Menstrual Period: 06/17/24 Post menopausal: No Patient : No : No Control Method[facility] History (Updated 07/07/24 @ 14:05 [...] use: always additional social history: Works at [employer] History 0 Elective abortions Hx Para Spontaneous [...] Pelvic Supp (more content not included)... Normal [facility] Platelet countOrdered By: Kelly Lagunas on 07-07-2024 Platelets (Bld) [#/Vol] 268 10*3/uL 150-450 [facility] Potassium (Unsp spec) [Mass/ Vol]Ordered By: Rasheeda Lagunas on 07-07-2024 Potassium [Moles/Vol] 3.9 mmol/L 3.3-5.1 [facility] RBC Auto (Bld) [#/Vol]Ordere d By: Rasheeda Lagunas on 07-07-2024 RBC (Bld) [#/Vol] 4.29 10*6/uL 4.2-5.4 [facility] Serum creatinine measurement (mass/volume)Ordered By: Rasheeda Lagunas on 07-07-2024 Creatinine [Mass/Vol] 0.69 mg/dL Low 0.70-1.20 [facility] Serum globulin measurementOr dered By: Rasheeda Lagunas on 07-07-2024 Globulin (S) [Mass/Vol] 2.5 g/dL 2.2-4.2 [facility] Serum glucose measurement (m ass/volume)Ordered By: Rasheeda Lagunas on 07-07-2024 Glucose [Mass/Vol] 88 mg/dL 70-99 [facility] Serum or plasma alanine carr otransferase (ALT) measurementOrdered By: Rasheeda Lagunas on 07-07-2024 ALT [Catalytic activity/Vol] 23 U/L <35 [facility] Serum or plasma albumin germania urement (mass/volume)Ordered By: Rasheeda Lagunas on 07-07-2024 Albumin [Mass/Vol] 4.9 g/dL 3.5-5.0 [facility] Serum or plasma albumin/glob ulin mass ratioOrdered By: Rasheeda Lagunas on 07-07-2024 Albumin/Globulin [Mass ratio] 1.9 {ratio} 0.9-2.4 [facility] Serum or plasma alkaline jonathan sphatase measurementOrdered By: Rasheeda Lagunas on 07-07-2024 ALP [Catalytic activity/Vol] 39 U/L 35-104 [facility] Serum or plasma calcium germania urement (mass/volume)Ordered By: Rasheeda Lagunas on 07-07-2024 Calcium [Mass/Vol] 9.7 mg/dL 7.6-11.0 [facility] Serum or plasma urea nitroge n measurement (mass/volume)Ordered By: Rasheeda Lagunas on 07-07-2024 Urea nitrogen [Mass/Vol] 10 mg/dL 4-19 [facility] Sodium levelOrdered By: Pita Lagunas on 07-07-2024 Sodium [Moles/Vol] 140 mmol/L 133-145 [facility] T4 Free Directon 07-07-2024 T4 FREE DIRECT 1.20 ng/dL Normal 0.76-1.46 [facility] Comment on above: Performed By: #### L 506.1001, L500.4050, L100.0100, L506.0400, L501.9520 #### [facility] [address] [place], [place], [id number] T4 freeOrdered By: Rasheeda ochoa on 07-07-2024 Free T4 [Mass/Vol] 1.20 ng/dL 0.76-1.46 [facility] TSH DL <= 0.005 mIU/L QnOrde red By: Rasheeda Lagunas on 07-07-2024 Thyroid Stimulating Hormone (TSH) 1.430 uIU/mL 0.300-4.200 [facility] Thyroid Stim Hormone (TSH)on 07-07-2024 TSH 1.430 uIU/mL Normal 0.300-4.200 [facility] Comment on above: Performed By: #### L 506.1001, L500.4050, L100.0100, L506.0400, L501.9520 #### [facility] [address] [place], [place], [id number] Total proteinOrdered By: Duy Lagunas on 07-07-2024 Protein [Mass/Vol] 7.4 g/dL 5.9-8.4 [facility] Vitamin D, 25-hydroxyOrdered By: Rasheeda Lagunas on 07-07-2024 Vitamin D 25-Hydroxy 23.5 ng/mL Low 30-100 [facility] Comment on above: Vitamin D StatusDefi ciency: <20 ng/mL (50nmol/L)Insufficiency: 20-30 ng/mL (50-75 nmol/L)Sufficiency: 30-100 ng/mL (75-250 nmol/L)Toxicity: >100 ng/mL (>250 nmol/L) Vitamin D,25 Hydroxyon 07-07 Vitamin D 25-OH 23.5 ng/mL Low 30-100 [facility] Comment on above: Result Comment: Katia min D Status Deficiency: <20 ng/mL (50nmol/L) Insufficiency: 20-30 ng/mL (50-75 nmol/L) Sufficiency: 30-100 ng/mL (75-250 nmol/L) Toxicity: >100 ng/mL (>250 nmol/L) Performed By: #### L 506.1001, L500.4050, L100.0100, L506.0400, L501.9520 #### [facility] [address] [place] [address], [address] White blood cell (WBC) count Ordered By: Rasheeda Lagunas on 07-07-2024 WBC (Bld) [#/Vol] 7.0 10*3/uL 4.4-11.0 [facility] Vital Signs Date Time Vital Sign Value Performing Clinician Leon fitzgerald 01-05-2025 08:48-0400 Body height 160.[address] Margret Jenkins MD Work Phone: [facility] 01-05-2025 08:48-0400 Body mass index (BMI) [Ratio] 23.1 kg/m2 Dr. Margret Jenkins MD Work Phone: [facility] 01-05-2025 08:48-0400 Body weight 59.[address] Margret Jenkins MD Work Phone: [facility] 01-05-2025 08:48-0400 Diastolic blood pressure 72 mm[Hg] Dr. Margret Jenkins MD Work Phone: [facility] 01-05-2025 08:48-0400 Systolic blood pressure 108 mm[Hg] Dr. Margret Jenkins MD Work Phone: [facility] 12-22-2024 14:35-0400 Body height 160.[address] Margret Jenkins MD Work Phone: [facility] 12-22-2024 14:35-0400 Body mass index (BMI) [Ratio] 23.7 kg/m2 Dr. Margret Jenkins MD Work Phone: [facility] 12-22-2024 14:35-0400 Body weight 60.[address] Margret Jenkins MD Work Phone: [facility] 12-22-2024 14:35-0400 Diastolic blood pressure 69 mm[Hg] Dr. Margret Jenkins MD Work Phone: [facility] 12-22-2024 14:35-0400 Systolic blood pressure 116 mm[Hg] Dr. Margret Jenkins MD Work Phone: [facility] 07-07-2024 13:37-0400 Body height 160.[address] Margret Jenkins MD Work Phone: [facility] 07-07-2024 13:37-0400 Body mass index (BMI) [Ratio] 24.4 kg/m2 Dr. Margret Jenkins MD Work Phone: [facility] 07-07-2024 13:37-0400 Body weight 62.[address] Margret Jenkins MD Work Phone: [facility] 07-07-2024 13:37-0400 Diastolic blood pressure 79 mm[Hg] Dr. Margret Jenkins MD Work Phone: [facility] 07-07-2024 13:37-0400 Systolic blood pressure 121 mm[Hg] Dr. Margret Jenkins MD Work Phone: [facility] Encounters Encounter Date Encounter Type Care Provider Facility Start: 01-24-2025 ambulatory Kayce Quintero lit:[facility] Start: 01-23-2025 Encounter for other preprocedural examination Kayce Alvarez [facility] Start: 01-23-2025 ambulatory Kayce Quintero lity:[facility] Start: 01-05-2025 End: 01-05-[address] Kayce Alvarez MD -[facility] Work Phone: Start: 01-05-2025 End: 01-05-[address] Margret Jenkins MD Work Phone: [facility] Start: 12-22-2024 End: 12-22-[address] Kayce Alvarez MD -[facility] Work Phone: Start: 12-22-2024 End: 12-22-[address] Margret Jenkins MD Work Phone: -[facility] Start: 12-10-2024 End: 12-10-[address] Margret Jenkins MD Work Phone: -[facility] Start: 12-10-2024 End: 12-10-2024 Patient encounter procedure Rasheeda WOODARD -Ul[facility]ound [facility] Work Phone: Start: 12-10-2024 End: 12-10-2024 ambulatory Rasheeda Lagunas Facility:[facility] Start: 07-07-2024 Encounter for gynecological examination (general) (routine) without abnormal findings Rasheeda Lagunas [facility] Start: 07-07-2024 End: 07-07-2024 Patient encounter procedure Rasheeda WOODARD -[facility] Work Phone: Start: 07-07-2024 End: 07-07-2024 Patient encounter status Rasheeda JAINC [facility] Start: 07-07-2024 End: 07-07-[address] Margret Jenkins MD Work Phone: [facility] Work Phone: Start: 07-07-2024 End: 07-07-2024 ambulatory Rasheeda Lagunas Facility:[facility] Procedures Date Procedure Procedure Detail Performing Clinician Start: 12-10-[address] Rogerio Jenkins MD Work Phone: Plan of Treatment Date Care Activity Detail Author Start: 07-07-2024 Liquid based cervica l cytology screening [facility] Path report.final Dx Spec [facility] Payers Date Payer Category Payer Self-pay 2024 Unknown [id number] Unknown [id number] 2.16.8 [id number] Unknown [id number] 2.16.8 [id number] Unknown [id number] 2.16.8 [id number] Unknown [id number] 2.16.8 [id number] Unknown [id number] 2.16.8 [id number] Unknown [id number] 2.16.8 [id number] Unknown [id number] 2.16.8 [id number] Social History Date Type Detail Facility Start: 07-07-2024 End: 01-05-2025 Tobacco smoking status NHIS Never smoked tobacco (finding) [facility] Start: 07-12-2024 Sex Female (finding) [facility] Start: 2000 Sex Assigned At Female [facility] Sex Female [facility] Clinical Note 01-23-2025 Note Date & Type Note Facility 01-23-2025 Note [facility] Medical Records Department [address] [place] [address] History Physical Exam 01/23/25 1735 MR#: [id number] Acct: [id number] Name: MELISSA REINOSO Rep #: [id number] : 2000 From: Kayce Alvarez MD PCP: Dr. 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 [facility] Progress note 01-05-2025 Note Date & Type Note Facility 01-05-2025 Progress note [facility] Evaluation note 12-22-2024 Note Date & Type Note Facility 12-22-2024 Evaluation note Diagnosis Onset Date Resolution Abnormal uterine bleeding acute December 22, 2024 2:22pm Irregular menses acute Septembe r 2024 2:22pm Uterine fibroid acute December 22, 2024 2:22pm Abnormal uterine bleeding acute January 05 8:40am Irregular menses acute January 05, 2025 8:40am Uterine fibroid acute January 052024 8:40am [facility] Work Phone: Radiology Diagnostic study note 12-12-2024 Note Date & Type Note Facility 12-12-2024 Radiology Diagnostic study note [facility] Imaging Services [address] [place], [place] [address] Pelvic w/ Transvaginal MR#: [id number] Acct: [id number] Name: MELISSA REINOSO Rep #: [id number] : 2000 24 From: Steven Samuels MD PCP: Dr. Margret Jenkins MD Status: R EG CLI Study:Pelvic w/ Transvaginal Date of Exam: 12/10/24 Exam# [id number] Ordering Dr: Rasheeda Lagunas PLUG STITCHER-C PROCEDURE: PELVIC W/ TRANSVAGINAL REASON FOR EXAM: [...] cm 5.6 cm fundal fibroid. Reading Location: [id number] CC: YAMILET Lagunas; Dr. Margret Jenkins MD ~ Stave Bolt Equalizer: Signed [facility] Evaluation note 07-07-2024 Note Date & Type Note Facility 07-07-2024 Evaluation note Diagnosis Onset Date Resolution Irregular menses acute July 1:33pm Encounter for routine gynecological examination noneactive July 07, 2024 1:33pm [facility] Work Phone: Evaluation note Note Date & Type Note Facility Evaluation note No assessment information availa [facility] Work Phone: Progress note Note Date & Type Note Facility Progress note Note Date/Time January 05, 2025 9:32am [facility] [address] [place] [address], [address] [place] [address] OFFICE VISIT Date of Service: 01/05/25 MR#: [id number] Acct: [id number] Name: MELISSA REINOSO Rep #: [id number] : 2000 Provider: Dr. Bruno Alvarez MD Age/Sex: 24/F Location: [facility] Status: Signed Intake Vital Signs 12/22/24 14:35 01/05/25 08:48 Height 5 ft 3 in 5 ft 3 in Weight: 134 lb 1 oz 130 lb 5 oz BMI 23.7 23.1 BP 116/69 108/72 Intake Visit Reasons: abdominal myomectomy Sales Relationship Manager Required: No Is patient in pain?: No Allergies No Known Allergies Allergy (Verified 01/05/25 08:50) Medications ?Medication ?Instructions ?Recorded ?Confirmed ?Type multivitamin,wz-mgkk-qenwjetl 1 tab PO DAILY 05/04/19 01/05/25 History [...] house current occupational status: employed current occupation: [employer] Smoking Status: Never smoker alcohol intake: never [...] comfortable and no acute distress Orientation: alert [facility] Head: normal to inspection and normocephalic [...] (narrative) No reason for referral information available [facility] Work Phone: Chief Complaint and Reason for Visit Chief Complaint Admit Date 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 aMrgret Jenkins MD Primary Care Provider Active Start: [...] section and content) DATE CREATED AUTHOR 01/23/2025 [facility] FOR RECORDS PERTAINING TO PATIENTS WHO [...] BE BASED ON THE PRIMARY CLINICAL RECORDS. [employer] [facility]. provides no warranty or guarantee of the accuracy or completeness of information in this document.
--- NOTE | 2025-01-24 12:39 | CASEMGMT ---
Social Work- Pt is over-income for JAZMIN. HCAP presented for completion. No other needs at this time. Rosalind/[employer] met with pt to verify JAZMIN ineligibility. ROBY Loya
[2025-01-24] MEDS: Ketorolac 30 MG/ML Syringe IV ×2 (14:36→22:22)
--- NOTE | 2025-01-24 17:38 | POSTOPAN2_ITS ---
Anesthesia Postop Eval I Sum Postop Eval Completion status Anesthesia document: Postop Eval 1 completed: Yes Anesthesia Postop Eval I Summary Anesthesia Postop Eval I Summary: Anesthesia Postop Eval I: Assessment Summary Airway patent Yes 01/24/25 09:21 RETAIL [email or web address] Spontaneous unlabored Yes 01/24/25 09:21 RETAIL [email or web address] respirations Mental status Asleep 01/24/25 09:21 RETAIL [email or web address] nausea No 01/24/25 09:21 RETAIL [email or web address] Vomiting No 01/24/25 09:21 RETAIL [email or web address] Anesthesia Postop Eval I: Fluid Summary Crystalloid volume administer 1,400 01/24/25 09:21 RETAIL [email or web address] (ml) Colloids volume administered ( ml) Blood Product volume administered (ml) Total IV fluid infused 1,400 01/24/25 09:21 RETAIL [email or web address] Anesthesia Postop Eval I: Summary Notes Anesthesia Complication No 01/24/25 09:21 RETAIL [email or web address] Anesthesia Complication Comment: Post-operative progress note Anesthesia: Postop Eval II Evaluation Mental status: Awake and Calm Pain Level: 0 nausea: No Vomiting: No Complications Anesthesia Complication: No
--- NOTE | 2025-01-24 17:38 | PCM.POSTANE2 ---
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 Spontaneous unlabored Yes 01/24/25 09:21 POWER MACHINE OPERATOR.[email or web address] respirations Mental status Asleep 01/24/25 09:21 POWER MACHINE [email or web address].[email or web address] nausea No 01/24/25 09:21 POWER MACHINE OPERATOR.[email or web address] Vomiting No 01/24/25 09:21 POWER MACHINE OPERATOR.[email or web address] Anesthesia Postop Eval I: Fluid Summary Crystalloid volume administer 1,400 01/24/25 09:21 POWER MACHINE OPERATOR.[email or web address] (ml) Colloids volume administered ( ml) Blood Product volume administered (ml) Total IV fluid infused 1,400 01/24/25 09:21 POWER MACHINE OPERATOR.[email or web address] Anesthesia Postop Eval I: Summary Notes Anesthesia Complication No 01/24/25 09:21 POWER MACHINE OPERATOR.[email or web address] Anesthesia Complication Comment: Post-operative progress note Anesthesia: Postop Eval II Evaluation Mental status: Awake and Calm Pain Level: 0 nausea: No Vomiting: No Complications Anesthesia Complication: No
[2025-01-25 02:35] VITALS: BP 105/65; PULSE 71; RESP 16; TEMP 36.6; O2SAT 96
[2025-01-25] MEDS: Lactated Ringers 1,000 ML 70 ML IV (04:20)
[2025-01-25 06:29] VITALS: BP 105/72; PULSE 65; RESP 16; TEMP 36.6; O2SAT 98
[2025-01-25 06:31] LABS: Hematocrit 33.0 % (37-47); Hemoglobin 11.0 g/dL (12.0-15.0); Mean Corp Hgb Conc 33.3 g/dL (32-36); Mean Corpuscular Volume 87.8 fL (81-99); Mean Platelet Vol. 10.1 fl (6.2-12.0); Platelet Count 227 K/mm3 (150-450); RBC Distribution Width CV 12.8 % (11.6-14.6); RBC Distribution Width SD 40.7 fl (35.1-43.9); Red Blood Count 3.76 M/mm3 (4.2-5.4); White Blood Count 8.7 K/mm3 (4.4-11.0)
--- NOTE | 2025-01-25 07:46 | PCM.PN.OB ---
Subjective Subjective Patient doing well without complaints. Tolerating PO. Ambulating without difficulty. Denies chest pain, shortness of breath, calf pain/swelling, fevers, chills, lightheadedness. Objective Data Objective Data Vital Signs: Vital Signs Temp Pulse Resp BP Pulse Ox O2 Del Method 98 F 65 16 105/72 98 Room Air 01/25/25 06:29 01/25/25 06:29 01/25/25 06:29 01/25/25 06:29 01/25/25 06:29 01/25/25 06:29 Oxygen Delivery Method Room Air Weight: 130 lb 1.164 oz Body Mass Index (BMI) 23.0 Intake & Output: Intake and Output for Last 24 Hours 01/23/25 01/24/25 01/25/25 23:59 23:59 23:59 Intake Total 1024 / 1024 1000 / 1000 Output Total 4060 / 4060 400 / 400 Balance -3036 / -3036 600 / 600 Lab / Micro Data 01/25/25 05:52 Labs: Laboratory Results - last 24 hr 01/25/25 05:52: WBC 8.7, RBC 3.76 L, Hgb 11.0 L, Hct 33.0 L, MCV 87.8, MCH 29.3, MCHC 33.3, RDW Std Deviation 40.7, RDW Coeff of Sabino 12.8, Plt Count 227, MPV 10.1 ROS Constitutional Constitutional: Reports systems reviewed and no addt'l complaints, except as documented Cardiovascular Cardiovascular: Reports systems reviewed and no addt'l complaints, except as documented Respiratory/Chest Respiratory/Chest: Reports systems reviewed and no addt'l complaints, except as documented Gastrointestinal Gastrointestinal: Reports systems reviewed and no addt'l complaints, except as documented Physical Exam Const alert, oriented x3 and no apparent distress HEENT Head and Scalp: atraumatic Resp normal respiratory effort GI soft to palpation and non-tender Assessment & Plan (1) Uterine fibroid: COMMENT: discused options plan abdominal myomectomy PLAN: Plan patient is s/p myomectomy POD 1 1. routine ERAS protocol postop care- increase ambulation, encourage oral intake and oral control of pain. lovenox and scds for dvt prophylaxis, patient stable for discharge to home.
[2025-01-25 09:29] VITALS: BP 110/75; PULSE 87; RESP 16; TEMP 36.6; O2SAT 99
--- NOTE | 2025-01-25 09:40 | CASEMGMT ---
Dx:laparotomy, myomectomy LACE:1 6-Clicks:24 Medical record reviewed and patient evaluated for identification of discharge planning needs. Based on this review, at this time criteria are not present to indicate a need for discharge planning. Will remain available to assist with discharge planning needs as identified or requested.
--- NOTE | 2025-01-25 12:53 | PHA.DC.MC.R ---
Pharmacy [facility] Counseling Pharmacy Service has performed discharge medication reconciliation and counseling for this patient. 1. NAPROXEN 500MG PO BID PRN PAIN 2. PERCOCET 5/325MG PO Q4H PRN PAIN The patient's discharge medication list was reviewed for discrepancies and discrepancies were resolved. The patient was counseled on the following discharge medications and changes in medications for homegoing were reviewed. The Reason for Use, instructions for use, and potential side effects were reviewed for all new medications. The patient's questions regarding all of their medications were answered. The patient was able to verbally demonstrate an understanding of their discharge medications. Medications at Discharge Home Medications BLACK PEPPER- TUMERIC 2 cap PO BID SUPPLEMENT 01/19/25 ferrous sulfate 325 mg (65 mg iron) tablet (Feosol) 325 mg PO BID SUPPLEMENT 01/19/25 omega 0-kgh-pod-fish oil 1,200 mg (144 mg-216 mg) capsule (Fish Oil) 2 cap PO DAILY SUPPLEMENT 01/19/25 naproxen 500 mg tablet 500 mg PO BID PRN PRN Pain #30 tabs 01/25/25 oxycodone-acetaminophen 5 mg-325 mg tablet (Percocet) 1 tab PO Q4H PRN pain 7 days #20 tabs 01/25/25
== END 2025-01-25 09:17 | disposition home or self-care (01) | DRG 743 ==
PROVIDERS: Admitting Provider Obstetrics & Gynecology; PCP Internal Medicine; Referring Provider Obstetrics & Gynecology; Visit Provider Obstetrics & Gynecology
PROC: 0UT90ZZ Resection of Uterus, Open Approach (ICD-10-PCS; CPT 58150; principal; 2025-01-24 07:10)
DX: D25.9 Leiomyoma of uterus, unspecified (principal); N92.6 Irregular menstruation, unspecified; N93.9 Abnormal uterine and vaginal bleeding, unspecified
CPT/HCPCS: 36415; 81025; 85025; 85027; 86850; 86900; 86901; 88305; 94668; A4216; J0525; J0666; J2405